=== PATIENT | female | born 1955 | race Caucasian/White ===

== ENCOUNTER 2016-09-28 14:21 | Emergency (ER) | payer MEDICAID ==
[~2016-09-28] VITALS: Ht 165.1 cm; Wt 88.0 kg
[~2016-09-28 14:21] MED LIST: ARIP2TAB PO; ATOR20TA9 PO; CALC200T24 PO; CLON0.5T PO; CLON1TAB PO; DIVA250T4 PO; DOCU-30 PO; FAMO20TA37 PO; HALO5TAB5 PO; LISI5TAB7 PO; OMEG1CAP6 PO
[2016-09-28] MEDS ORDERED: MAALOX/HYOSCYAMINE/LIDOCAINE 45 ML BOTTLE ONE (14:54)
[2016-09-28] MEDS ORDERED: MAALOX/HYOSCYAMINE/LIDOCAINE 45 ML BOTTLE PO ONE (15:00)
[2016-09-28 15:29] LABS: BLOOD UREA NITROGEN 31 mg/dL (7-18)
[2016-09-28 15:36] LABS: ASPARTATE AMINO TRANSFERASE 10 U/L (15-37)
[2016-09-28 15:43] LABS: IS PT STATUS REG ER OR PRE ER? YES
[2016-09-28 15:44] VITALS: BP 100/51
== END 2016-09-28 16:21 | disposition home or self-care (01) ==
LOC: ED 16:10
DX: R07.89 Other chest pain (principal); N18.9 Chronic kidney disease, unspecified; G20 Parkinson's disease; Z90.49 Acquired absence of other specified parts of digestive tract; Z90.710 Acquired absence of both cervix and uterus
CPT/HCPCS: 36415; 71010; 80053; 83690; 84484; 85025; 93005; 99285

== ENCOUNTER 2016-12-22 23:23 | Emergency (ER) | payer MEDICAID ==
[~2016-12-22] VITALS: Ht 165.1 cm; Wt 79.1 kg
[2016-12-23] MEDS ORDERED: LORazepam 1MG TABLET PO ONE
[2016-12-23] MEDS ORDERED: LORazepam 1MG TABLET ONE (00:04)
[2016-12-23] MEDS: HYDROcodone/APAP 5/325 TABLET PO ONE ×2 (00:30→03:38)
[2016-12-23] MEDS ORDERED: HYDROcodone/APAP 5/325 TABLET ONE ×2 (00:33→03:35)
[2016-12-23 00:34] LABS: ASPARTATE AMINO TRANSFERASE 7 U/L (15-37); BLOOD UREA NITROGEN 31 mg/dL (7-18)
[2016-12-23 00:43] LABS: IS PT STATUS REG ER OR PRE ER? YES
[2016-12-23 03:51] VITALS: BP 138/58
== END 2016-12-23 03:54 | disposition home or self-care (01) ==
LOC: ED 23:59
DX: R07.89 Other chest pain (principal); R33.0 Drug induced retention of urine; F17.210 Nicotine dependence, cigarettes, uncomplicated; G25.0 Essential tremor; Z90.49 Acquired absence of other specified parts of digestive tract; Z90.710 Acquired absence of both cervix and uterus
CPT/HCPCS: 36415; 71010; 80053; 84484; 85025; 85379; 93005

== ENCOUNTER 2017-01-11 11:20 | Emergency (ER) | payer MEDICAID ==
[~2017-01-11] VITALS: Ht 165.1 cm; Wt 84.0 kg
[2017-01-11] MEDS ORDERED: HALO10TA PO (11:45)
[2017-01-11] MEDS ORDERED: ARIP20TA8 PO (11:45)
[2017-01-11] MEDS ORDERED: DIVA500T4 PO (11:45)
[2017-01-11] MEDS ORDERED: SODIUM CHLORIDE 0.9% 1,000 ML IV ONE (11:54)
[2017-01-11] MEDS ORDERED: SODIUM CHLORIDE FLUSH 10ML SYR IVF ONE (12:00)
[2017-01-11] MEDS ORDERED: HYDROcodone/APAP 5/325 TABLET ONE (12:46)
[2017-01-11 12:54] LABS: HEMATOCRIT 39.4 % (34.6-47.8); HEMOGLOBIN 12.9 g/dL (11.7-16.4); WHITE BLOOD COUNT 6.3 x10^3/uL (3.4-10)
[2017-01-11] MEDS ORDERED: HYDROcodone/APAP 5/325 TABLET PO ONE (13:00)
[2017-01-11 13:05] LABS: ASPARTATE AMINO TRANSFERASE 8 U/L (15-37); BLOOD UREA NITROGEN 13 mg/dL (7-18)
[2017-01-11 14:31] VITALS: BP 125/65
== END 2017-01-11 14:34 | disposition home or self-care (01) ==
LOC: ED 11:56
DX: M54.42 Lumbago with sciatica, left side (principal); F31.9 Bipolar disorder, unspecified; G20 Parkinson's disease; F20.9 Schizophrenia, unspecified; Z88.5 Allergy status to narcotic agent; Z88.6 Allergy status to analgesic agent
CPT/HCPCS: 36415; 72110; 73502; 80053; 81003; 85025; 96360; 99285; J7030

== ENCOUNTER 2017-02-06 17:48 | Emergency (ER) | payer MEDICAID ==
[~2017-02-06] VITALS: Ht 165.1 cm; Wt 83.0 kg
[~2017-02-06 17:48] MED LIST changes: +ARIP20TA5 PO; -ARIP2TAB PO; +ARIP2TAB2 PO; +DIVA500T4 PO; +DOCU-131 PO; -DOCU-30 PO; +HALO10TA PO
[2017-02-06] MEDS ORDERED: SODIUM CHLORIDE FLUSH 10ML SYR IVF ONE (18:00)
[2017-02-06 18:31] LABS: HEMATOCRIT 37.8 % (34.6-47.8); HEMOGLOBIN 12.6 g/dL (11.7-16.4); WHITE BLOOD COUNT 6.5 x10^3/uL (3.4-10)
[2017-02-06 18:41] LABS: ASPARTATE AMINO TRANSFERASE 7 U/L (15-37); BLOOD UREA NITROGEN 22 mg/dL (7-18)
[2017-02-06] MEDS ORDERED: ARTANE (18:59)
[2017-02-06] MEDS ORDERED: HALO5TAB5 PO (18:59)
[2017-02-06] MEDS ORDERED: MAALOX/HYOSCYAMINE/LIDOCAINE 45 ML BTL PO ONE (19:00)
[2017-02-06 19:30] LABS: IS PT STATUS REG ER OR PRE ER? YES
[2017-02-06] MEDS ORDERED: MAALOX/HYOSCYAMINE/LIDOCAINE 45 ML BTL ONE (19:43)
[2017-02-06 22:16] VITALS: BP 114/76
== END 2017-02-06 22:18 | disposition home or self-care (01) ==
LOC: ED 21:06
DX: M79.604 Pain in right leg (principal); R10.84 Generalized abdominal pain
CPT/HCPCS: 36415; 71010; 80053; 81003; 84484; 85025; 93005; 99285

== ENCOUNTER 2017-02-07 18:34 | Emergency (ER) | payer MEDICAID ==
[~2017-02-07] VITALS: Ht 165.1 cm; Wt 84.0 kg
[~2017-02-07 18:34] MED LIST changes: +ARTANE
[2017-02-07 19:41] LABS: HEMATOCRIT 38.1 % (34.6-47.8); HEMOGLOBIN 12.6 g/dL (11.7-16.4); WHITE BLOOD COUNT 7.1 x10^3/uL (3.4-10)
[2017-02-07 19:55] LABS: ASPARTATE AMINO TRANSFERASE 6 U/L (15-37); BLOOD UREA NITROGEN 22 mg/dL (7-18)
[2017-02-07 21:43] VITALS: BP 113/70
== END 2017-02-07 21:45 | disposition home or self-care (01) ==
LOC: ED 20:23
DX: K92.1 Melena (principal); R19.7 Diarrhea, unspecified; G20 Parkinson's disease; Z90.49 Acquired absence of other specified parts of digestive tract; Z90.710 Acquired absence of both cervix and uterus
CPT/HCPCS: 36415; 74022; 80053; 83690; 85025; 99285

== ENCOUNTER 2017-03-10 23:01 | Emergency (ER) | payer MEDICAID ==
[~2017-03-10] VITALS: Ht 165.1 cm; Wt 83.1 kg
[2017-03-11] MEDS ORDERED: HYDROcodone/APAP 5/325 TABLET PO ONE (00:30)
[2017-03-11] MEDS ORDERED: HYDROcodone/APAP 5/325 TABLET ONE (00:32)
[2017-03-11 00:41] LABS: HEMATOCRIT 35.3 % (34.6-47.8); HEMOGLOBIN 11.9 g/dL (11.7-16.4); WHITE BLOOD COUNT 7.3 x10^3/uL (3.4-10)
[2017-03-11 00:50] LABS: BLOOD UREA NITROGEN 22 mg/dL (7-18)
[2017-03-11 01:24] VITALS: BP 103/56
== END 2017-03-11 01:27 | disposition home or self-care (01) ==
LOC: ED 23:59
DX: R51 Headache (principal); M54.5 Low back pain; M79.602 Pain in left arm; M79.601 Pain in right arm; M79.605 Pain in left leg; M79.604 Pain in right leg; Z90.49 Acquired absence of other specified parts of digestive tract; F20.9 Schizophrenia, unspecified; F17.200 Nicotine dependence, unspecified, uncomplicated; G20 Parkinson's disease; Z90.710 Acquired absence of both cervix and uterus
CPT/HCPCS: 36415; 80048; 82040; 85025; 99284

== ENCOUNTER 2017-03-22 16:15 | Emergency (ER) | payer MEDICAID ==
[~2017-03-22] VITALS: Ht 165.1 cm; Wt 84.0 kg
[2017-03-22 16:49] LABS: HEMATOCRIT 34.3 % (34.6-47.8); HEMOGLOBIN 11.3 g/dL (11.7-16.4); WHITE BLOOD COUNT 6.1 x10^3/uL (3.4-10)
[2017-03-22 16:59] LABS: ASPARTATE AMINO TRANSFERASE 8 U/L (15-37); BLOOD UREA NITROGEN 20 mg/dL (7-18)
[2017-03-22] MEDS ORDERED: MAALOX/HYOSCYAMINE/LIDOCAINE 45 ML BTL PO ONE (17:00)
[2017-03-22] MEDS ORDERED: FAMOTIDINE 20 MG TABLET PO ONE (17:00)
[2017-03-22] MEDS ORDERED: MAALOX/HYOSCYAMINE/LIDOCAINE 45 ML BTL ONE (17:16)
[2017-03-22] MEDS ORDERED: FAMOTIDINE 20 MG TABLET ONE (17:16)
[2017-03-22 18:32] VITALS: BP 107/54
== END 2017-03-22 18:34 | disposition home or self-care (01) ==
LOC: ED 17:22
DX: K21.0 Gastro-esophageal reflux disease with esophagitis (principal); G20 Parkinson's disease; F31.9 Bipolar disorder, unspecified; F20.9 Schizophrenia, unspecified; Z90.49 Acquired absence of other specified parts of digestive tract; Z79.82 Long term (current) use of aspirin; Z88.6 Allergy status to analgesic agent
CPT/HCPCS: 36415; 80053; 83690; 85025; 99284

== ENCOUNTER 2017-04-25 19:48 | Emergency (ER) | payer MEDICAID ==
[~2017-04-25] VITALS: Ht 165.1 cm; Wt 88.6 kg
[2017-04-25 20:26] LABS: HEMATOCRIT 34.9 % (34.6-47.8); HEMOGLOBIN 11.6 g/dL (11.7-16.4); WHITE BLOOD COUNT 5.9 x10^3/uL (3.4-10)
[2017-04-25] MEDS ORDERED: FAMOTIDINE 20 MG TABLET PO ONE (20:30)
[2017-04-25] MEDS ORDERED: MAALOX/HYOSCYAMINE/LIDOCAINE 45 ML BTL PO ONE (20:30)
[2017-04-25 20:38] LABS: BLOOD UREA NITROGEN 21 mg/dL (7-18)
[2017-04-25 20:50] LABS: IS PT STATUS REG ER OR PRE ER? YES
[2017-04-25] MEDS ORDERED: FAMOTIDINE 20 MG TABLET ONE (21:19)
[2017-04-25] MEDS ORDERED: MAALOX/HYOSCYAMINE/LIDOCAINE 45 ML BTL ONE (21:20)
[2017-04-25 21:30] VITALS: BP 124/62
== END 2017-04-25 21:51 | disposition home or self-care (01) ==
LOC: ED 21:45
DX: K29.00 Acute gastritis without bleeding (principal); K21.9 Gastro-esophageal reflux disease without esophagitis; G20 Parkinson's disease; Z90.49 Acquired absence of other specified parts of digestive tract
CPT/HCPCS: 36415; 71010; 80048; 82040; 84484; 85025; 93005; 99285

== ENCOUNTER 2017-06-14 20:29 | Emergency (ER) | payer MEDICAID ==
[2017-06-14] MEDS ORDERED: MAALOX/HYOSCYAMINE/LIDOCAINE 45 ML BTL ONE (20:58)
[2017-06-14] MEDS ORDERED: MAALOX/HYOSCYAMINE/LIDOCAINE 45 ML BTL PO ONE (21:00)
[2017-06-14 21:08] LABS: BASOPHILS # (AUTO) 0.05 x10^3/uL (0-0.1); BASOPHILS % (AUTO) 1 % (0-1); EOSINOPHILS # (AUTO) 0.12 x10^3/uL (0-0.4); EOSINOPHILS % (AUTO) 2 % (1-7); LYMPHOCYTES % (AUTO) 35 % (22-44); MD NO; MEAN CORPUSCULAR HEMOGLOBIN 28.9 pg (27.0-34.8); MEAN CORPUSCULAR HGB CONC 33.1 g/dL (32.4-35.8); MEAN CORPUSCULAR VOLUME 87.2 fL (80-100); MEAN PLATELET VOLUME 10.9 fL (7.4-10.4); MONOCYTES # (AUTO) 0.55 x10^3/uL (0.2-0.8); MONOCYTES % (AUTO) 9 % (2-9); NEUTROPHILS # (AUTO) 3.42 x10^3/uL (1.8-6.8); NEUTROPHILS % (AUTO) 54 % (42-75); PLATELET COUNT 165 x10^3/uL (130-400); RED BLOOD COUNT 3.93 x10^6/uL (3.82-5.3); RED CELL DISTRIBUTION WIDTH 14.9 % (9.6-15.2)
[2017-06-14 21:09] LABS: MICROSCOPIC NOT IND
[2017-06-14 21:22] LABS: TROPONIN I < 0.015 ng/mL (0.000-0.045)
[2017-06-14 21:27] LABS: ALBUMIN 2.9 g/dL (3.4-5.0); ANION GAP 6 mmol/L (5-15); CALCIUM 8.5 mg/dL (8.5-10.1); CHLORIDE 109 mmol/L (98-107)
[2017-06-14 21:31] LABS: ALANINE AMINOTRANSFERASE 26 U/L (12-78); ALKALINE PHOSPHATASE 85 U/L (45-117); BILIRUBIN,TOTAL 0.3 mg/dL (0.2-1.0); CREATININE 2.12 mg/dL (0.55-1.02); TOTAL PROTEIN 6.4 g/dL (6.4-8.2)
[2017-06-14 21:31] LABS: CULTURE INDICATED? NO
[2017-06-14 22:11] VITALS: BP 124/78
== END 2017-06-14 22:13 | disposition home or self-care (01) ==
LOC: ED 22:00
DX: K29.00 Acute gastritis without bleeding (principal); G20 Parkinson's disease; K21.9 Gastro-esophageal reflux disease without esophagitis; Z90.49 Acquired absence of other specified parts of digestive tract
CPT/HCPCS: 36415; 80053; 81003; 83690; 84484; 85025; 93005; 99285

== ENCOUNTER 2017-08-09 11:39 | Emergency (ER) | payer MEDICAID ==
[~2017-08-09] VITALS: Ht 165.1 cm; Wt 81.8 kg
[2017-08-09] MEDS ORDERED: SODIUM CHLORIDE 0.9% 1,000ML IVBOLUS ONE (12:00)
[2017-08-09 12:35] LABS: BASOPHILS # (AUTO) 0.04 x10^3/uL (0-0.1); BASOPHILS % (AUTO) 1 % (0-1); EOSINOPHILS # (AUTO) 0.11 x10^3/uL (0-0.4); EOSINOPHILS % (AUTO) 2 % (1-7); LYMPHOCYTES # (AUTO) 1.84 x10^3/uL (1-3.4); LYMPHOCYTES % (AUTO) 32 % (22-44); MD NO; MEAN CORPUSCULAR HEMOGLOBIN 29.1 pg (27.0-34.8); MEAN CORPUSCULAR HGB CONC 33.4 g/dL (32.4-35.8); MEAN CORPUSCULAR VOLUME 87.3 fL (80-100); MEAN PLATELET VOLUME 10.5 fL (7.4-10.4); MONOCYTES % (AUTO) 11 % (2-9); NEUTROPHILS % (AUTO) 55 % (42-75); PLATELET COUNT 194 x10^3/uL (130-400); RED BLOOD COUNT 4.35 x10^6/uL (3.82-5.3); RED CELL DISTRIBUTION WIDTH 14.2 % (9.6-15.2)
[2017-08-09 12:41] LABS: ALBUMIN 3.4 g/dL (3.4-5.0); ANION GAP 9 mmol/L (5-15); CALCIUM 8.8 mg/dL (8.5-10.1); CHLORIDE 108 mmol/L (98-107)
[2017-08-09 12:45] LABS: ALANINE AMINOTRANSFERASE 18 U/L (12-78); ALKALINE PHOSPHATASE 100 U/L (45-117); BILIRUBIN,TOTAL 0.4 mg/dL (0.2-1.0); CREATININE 1.99 mg/dL (0.55-1.02); TOTAL PROTEIN 7.2 g/dL (6.4-8.2)
[2017-08-09 14:22] LABS: THYROID STIMULATING HORMONE 2.33 mIU/L (0.358-3.740)
[2017-08-09 15:33] LABS: CULTURE INDICATED? NO; MICROSCOPIC NOT IND
[2017-08-09 15:57] VITALS: BP 106/84
== END 2017-08-09 16:16 | disposition home or self-care (01) ==
LOC: ED 14:40
DX: R53.1 Weakness (principal); F20.9 Schizophrenia, unspecified; F31.9 Bipolar disorder, unspecified; I48.91 Unspecified atrial fibrillation
CPT/HCPCS: 36415; 70450; 80053; 81003; 83735; 84443; 85025; 93005; 96360; 96361; 99285; J7030

== ENCOUNTER 2018-02-15 20:27 | Observation (INO) | payer MEDICAID ==
[~2018-02-15] VITALS: Ht 165.1 cm; Wt 89.3 kg
[2018-02-15 20:58] LABS: BASOPHILS # (AUTO) 0.04 x10^3/uL (0-0.1); BASOPHILS % (AUTO) 1 % (0-1); EOSINOPHILS # (AUTO) 0.15 x10^3/uL (0-0.4); EOSINOPHILS % (AUTO) 2 % (1-7); LYMPHOCYTES # (AUTO) 2.66 x10^3/uL (1-3.4); LYMPHOCYTES % (AUTO) 37 % (22-44); MD NO; MEAN CORPUSCULAR HEMOGLOBIN 29.7 pg (27.0-34.8); MEAN CORPUSCULAR HGB CONC 33.5 g/dL (32.4-35.8); MEAN CORPUSCULAR VOLUME 88.6 fL (80-100); MEAN PLATELET VOLUME 9.9 fL (7.4-10.4); MONOCYTES # (AUTO) 0.69 x10^3/uL (0.2-0.8); MONOCYTES % (AUTO) 10 % (2-9); NEUTROPHILS # (AUTO) 3.59 x10^3/uL (1.8-6.8); NEUTROPHILS % (AUTO) 50 % (42-75); PLATELET COUNT 181 x10^3/uL (130-400); RED BLOOD COUNT 3.66 x10^6/uL (3.82-5.3); RED CELL DISTRIBUTION WIDTH 15.1 % (9.6-15.2)
[2018-02-15] MEDS ORDERED: SODIUM CHLORIDE FLUSH 10ML SYR IVF ONE (21:00)
[2018-02-15 21:03] LABS: ALBUMIN 2.9 g/dL (3.4-5.0); ANION GAP 13 mmol/L (5-15); CALCIUM 8.1 mg/dL (8.5-10.1); CHLORIDE 104 mmol/L (98-107); CREATININE 2.21 mg/dL (0.55-1.02)
[2018-02-15 21:07] LABS: TROPONIN I < 0.015 ng/mL (0.000-0.045)
[2018-02-15] MEDS ORDERED: ACETAMINOPHEN 500 MG TABLET ONE (21:31)
[2018-02-15] MEDS ORDERED: SODIUM CHLORIDE 0.9% 1,000 ML IV SCH (21:49)
[2018-02-15] MEDS ORDERED: ACETAMINOPHEN 325 MG TABLET PO PRN (22:00)
[2018-02-15] MEDS ORDERED: POLYETHYLENE GLYCOL 17 GM PACKET PO PRN (22:00)
[2018-02-15] MEDS ORDERED: hydrALAzine 20 MG/ML, 1ML IVPush PRN (22:00)
[2018-02-15] MEDS ORDERED: ACETAMINOPHEN 500 MG TABLET PO ONE (22:00)
[2018-02-15 22:54] VITALS: BP 109/70
[2018-02-15 23:17] VITALS: BP 109/73
[2018-02-16 00:01] VITALS: BP 98/64
[2018-02-16] MEDS: HEPARIN 5,000 UNITS/ML, 1ML SQ SCH ×3 (00:13→14:00)
[2018-02-16] MEDS ORDERED: NITROGLYCERIN 0.4 MG/SPRAY SL PRN (00:30)
[2018-02-16] MEDS ORDERED: NITROGLYCERIN 0.4 MG BOTTLE (25 TABS) SL PRN (00:30)
[2018-02-16 04:52] LABS: ANION GAP 7 mmol/L (5-15); CHLORIDE 111 mmol/L (98-107)
[2018-02-16 04:57] LABS: TROPONIN I < 0.015 ng/mL (0.000-0.045)
[2018-02-16] MEDS ORDERED: DIVALPROEX 500 MG TAB.ER.24H PO SCH (08:00)
[2018-02-16 08:36] VITALS: BP 126/79
[2018-02-16] MEDS ORDERED: HALOPERIDOL 5 MG TABLET PO SCH (09:00)
[2018-02-16] MEDS ORDERED: ARIPIPRAZOLE 10 MG TABLET PO SCH (09:00)
[2018-02-16] MEDS ORDERED: REGADENOSON 0.4 MG/5 ML SYRINGE ONE (09:09)
== END 2018-02-16 16:13 | disposition home or self-care (01) ==
LOC: SUATTDRO 21:40 → ED 22:07 → EDIP 22:18 → 5SO 22:31
PROVIDERS: ADMIT Hospitalist; ATTEND Hospitalist
DX: R07.89 Other chest pain (principal); F31.9 Bipolar disorder, unspecified; D64.9 Anemia, unspecified; E43 Unspecified severe protein-calorie malnutrition; E78.5 Hyperlipidemia, unspecified; F17.210 Nicotine dependence, cigarettes, uncomplicated; F20.9 Schizophrenia, unspecified; K21.9 Gastro-esophageal reflux disease without esophagitis; N28.9 Disorder of kidney and ureter, unspecified; Z79.82 Long term (current) use of aspirin
CPT/HCPCS: 36415; 71045; 78452; 80048; 82040; 83735; 84100; 84484; 85025; 93005; 93017; 96372; 99285; A9502; C9898; G0378; J1644; J2785; J7030

== ENCOUNTER 2018-05-20 12:17 | Observation (INO) | payer MEDICAID ==
[~2018-05-20] VITALS: Ht 165.1 cm; Wt 83.7 kg
[~2018-05-20 12:17] MED LIST changes: +ATOR20TA37 PO; -ATOR20TA9 PO
[2018-05-20 13:18] LABS: BASOPHILS # (AUTO) 0.04 x10^3/uL (0-0.1); BASOPHILS % (AUTO) 1 % (0-1); EOSINOPHILS # (AUTO) 0.06 x10^3/uL (0-0.4); EOSINOPHILS % (AUTO) 2 % (1-7); LYMPHOCYTES # (AUTO) 1.49 x10^3/uL (1-3.4); LYMPHOCYTES % (AUTO) 34 % (22-44); MD NO; MEAN CORPUSCULAR HEMOGLOBIN 29.4 pg (27.0-34.8); MEAN CORPUSCULAR HGB CONC 33.9 g/dL (32.4-35.8); MEAN CORPUSCULAR VOLUME 86.7 fL (80-100); MEAN PLATELET VOLUME 10.2 fL (7.4-10.4); MONOCYTES # (AUTO) 0.35 x10^3/uL (0.2-0.8); MONOCYTES % (AUTO) 8 % (2-9); NEUTROPHILS # (AUTO) 2.47 x10^3/uL (1.8-6.8); NEUTROPHILS % (AUTO) 56 % (42-75); PLATELET COUNT 153 x10^3/uL (130-400); RED BLOOD COUNT 4.01 x10^6/uL (3.82-5.3); RED CELL DISTRIBUTION WIDTH 14.4 % (9.6-15.2)
[2018-05-20] MEDS ORDERED: MAALOX/HYOSCYAMINE/LIDOCAINE 45 ML BTL ONE (13:25)
[2018-05-20] MEDS ORDERED: ASPIRIN 81 MG TABLET CHEW ONE (13:25)
[2018-05-20] MEDS ORDERED: ASPIRIN 81 MG TABLET CHEW PO ONE ×2 (13:30)
[2018-05-20] MEDS ORDERED: MAALOX/HYOSCYAMINE/LIDOCAINE 45 ML BTL PO ONE (13:30)
[2018-05-20 13:33] LABS: ALANINE AMINOTRANSFERASE 20 U/L (12-78); ALBUMIN 3.2 g/dL (3.4-5.0); ANION GAP 9 mmol/L (5-15); CALCIUM 8.8 mg/dL (8.5-10.1); CHLORIDE 109 mmol/L (98-107); CREATININE 2.48 mg/dL (0.55-1.02)
[2018-05-20 13:38] LABS: ALKALINE PHOSPHATASE 105 U/L (45-117); BILIRUBIN,TOTAL 0.2 mg/dL (0.2-1.0); TOTAL PROTEIN 6.6 g/dL (6.4-8.2); TROPONIN I < 0.015 ng/mL (0.000-0.045)
[2018-05-20] MEDS ORDERED: NITROGLYCERIN OINT 2%, 1GM TP ONE (14:00)
[2018-05-20] MEDS ORDERED: ACETAMINOPHEN 325 MG TABLET PO PRN (14:30)
[2018-05-20] MEDS ORDERED: TEMPLATE NON-FORMULARY MED. (Divalproex Sodium** (Depakote Er**) 1,000 MG) PO SCH (14:30)
[2018-05-20] MEDS ORDERED: BISACODYL 10 MG SUPP PR PRN (14:30)
[2018-05-20] MEDS ORDERED: HALOPERIDOL 10 MG PO SCH (14:30)
[2018-05-20] MEDS ORDERED: DOCUSATE 100 MG CAPSULE PO PRN (14:30)
[2018-05-20] MEDS ORDERED: ONDANSETRON 2MG/ML, 2ML IVPush PRN (14:30)
[2018-05-20] MEDS ORDERED: hydrALAzine 20 MG/ML, 1ML IVPush PRN (14:30)
[2018-05-20] MEDS ORDERED: POLYETHYLENE GLYCOL 17 GM PACKET PO PRN (14:30)
[2018-05-20] MEDS ORDERED: NITROGLYCERIN 0.4 MG BOTTLE (25 TABS) SL PRN (14:30)
[2018-05-20 15:00] VITALS: BP 118/77
[2018-05-20] MEDS: HEPARIN 5,000 UNITS/ML, 1ML SQ SCH ×2 (16:05→23:55)
[2018-05-20] MEDS ORDERED: TRIH2TAB3 PO (16:29)
[2018-05-20] MEDS ORDERED: CLON1TAB PO (16:29)
[2018-05-20] MEDS ORDERED: HALO10TA PO (16:29)
[2018-05-20] MEDS ORDERED: CHOL200085 PO (16:33)
[2018-05-20] MEDS ORDERED: FAMO20TA7 PO (16:33)
[2018-05-20 17:16] LABS: TROPONIN I < 0.015 ng/mL (0.000-0.045)
[2018-05-20] MEDS: HALOPERIDOL 5 MG TABLET PO SCH (20:09)
[2018-05-20 20:19] VITALS: BP 100/57
[2018-05-20 23:33] LABS: TROPONIN I < 0.015 ng/mL (0.000-0.045)
[2018-05-21 00:14] VITALS: BP 95/62
[2018-05-21] MEDS ORDERED: ASPIRIN 325 MG TABLET EC PO SCH (06:00)
[2018-05-21 08:05] VITALS: BP 95/64
[2018-05-21] MEDS: HEPARIN 5,000 UNITS/ML, 1ML SQ SCH (08:11)
[2018-05-21] MEDS: HALOPERIDOL 5 MG TABLET PO SCH (08:11)
[2018-05-21 08:26] LABS: BASOPHILS # (AUTO) 0.04 x10^3/uL (0-0.1); BASOPHILS % (AUTO) 1 % (0-1); EOSINOPHILS # (AUTO) 0.09 x10^3/uL (0-0.4); EOSINOPHILS % (AUTO) 2 % (1-7); LYMPHOCYTES # (AUTO) 2.15 x10^3/uL (1-3.4); LYMPHOCYTES % (AUTO) 45 % (22-44); MD NO; MEAN CORPUSCULAR HEMOGLOBIN 28.7 pg (27.0-34.8); MEAN CORPUSCULAR VOLUME 87.1 fL (80-100); MONOCYTES # (AUTO) 0.36 x10^3/uL (0.2-0.8); MONOCYTES % (AUTO) 7 % (2-9); NEUTROPHILS # (AUTO) 2.18 x10^3/uL (1.8-6.8); NEUTROPHILS % (AUTO) 45 % (42-75); PLATELET COUNT 153 x10^3/uL (130-400); RED BLOOD COUNT 4.03 x10^6/uL (3.82-5.3); RED CELL DISTRIBUTION WIDTH 14.2 % (9.6-15.2)
[2018-05-21 08:35] LABS: ANION GAP 7 mmol/L (5-15); CALCIUM 8.4 mg/dL (8.5-10.1); CHLORIDE 111 mmol/L (98-107); CREATININE 2.52 mg/dL (0.55-1.02)
[2018-05-21] MEDS ORDERED: ARIPIPRAZOLE 10 MG TABLET PO SCH (09:00)
[2018-05-21] MEDS ORDERED: DIVALPROEX 500 MG TAB.ER.24H PO SCH (09:00)
== END 2018-05-21 13:02 | disposition home or self-care (01) ==
LOC: ED 14:01 → EDIP 14:02 → INTOOBSV 14:02 → 5SO 14:51 → DCLOUNGE 05-21 12:40
PROVIDERS: ADMIT Internal Medicine; ATTEND Internal Medicine
DX: R07.89 Other chest pain (principal); E44.1 Mild protein-calorie malnutrition; F20.9 Schizophrenia, unspecified; F31.9 Bipolar disorder, unspecified; G20 Parkinson's disease; I12.9 Hypertensive chronic kidney disease with stage 1 through stage 4 chronic kidney disease, or unspecified chronic kidney disease; N18.9 Chronic kidney disease, unspecified; K21.9 Gastro-esophageal reflux disease without esophagitis; F17.200 Nicotine dependence, unspecified, uncomplicated
CPT/HCPCS: 36415; 71045; 80048; 80053; 83880; 84484; 85025; 93005; 93306; 96372; 99284; G0378; J1644

== ENCOUNTER 2018-06-17 19:20 | Emergency (ER) | payer MEDICAID ==
[~2018-06-17 19:20] MED LIST changes: +CHOL200085 PO; +FAMO20TA7 PO; +TRIH2TAB3 PO
--- NOTE | 2018-06-17 19:51 | NUR ---
TASK RN: PT. AMBULATED TO ROOM FROM LOBBY WITH STEADY GAIT. URINE CUP PROVIDED AND PT. AMBULATORY TO BR TO PROVIDE URINE SAMPLE.
[2018-06-17 19:52] LABS: BASOPHILS # (AUTO) 0.04 x10^3/uL (0-0.1); BASOPHILS % (AUTO) 1 % (0-1); EOSINOPHILS # (AUTO) 0.13 x10^3/uL (0-0.4); EOSINOPHILS % (AUTO) 2 % (1-7); LYMPHOCYTES # (AUTO) 2.09 x10^3/uL (1-3.4); LYMPHOCYTES % (AUTO) 40 % (22-44); MD NO; MEAN CORPUSCULAR HEMOGLOBIN 30.2 pg (27.0-34.8); MEAN CORPUSCULAR HGB CONC 34.8 g/dL (32.4-35.8); MEAN CORPUSCULAR VOLUME 86.7 fL (80-100); MEAN PLATELET VOLUME 9.9 fL (7.4-10.4); MONOCYTES # (AUTO) 0.39 x10^3/uL (0.2-0.8); MONOCYTES % (AUTO) 8 % (2-9); NEUTROPHILS # (AUTO) 2.54 x10^3/uL (1.8-6.8); NEUTROPHILS % (AUTO) 49 % (42-75); PLATELET COUNT 184 x10^3/uL (130-400); RED BLOOD COUNT 4.01 x10^6/uL (3.82-5.3); RED CELL DISTRIBUTION WIDTH 14.7 % (9.6-15.2)
[2018-06-17 20:02] LABS: ALBUMIN 3.3 g/dL (3.4-5.0); ANION GAP 8 mmol/L (5-15); CALCIUM 8.4 mg/dL (8.5-10.1); CHLORIDE 108 mmol/L (98-107); CREATININE 2.27 mg/dL (0.55-1.02)
[2018-06-17 20:10] LABS: ALANINE AMINOTRANSFERASE 19 U/L (12-78); ALKALINE PHOSPHATASE 119 U/L (45-117); BILIRUBIN,TOTAL 0.2 mg/dL (0.2-1.0); TOTAL PROTEIN 6.8 g/dL (6.4-8.2)
[2018-06-17 20:11] LABS: MICROSCOPIC NOT IND
[2018-06-17 20:21] LABS: CULTURE INDICATED? NO
--- NOTE | 2018-06-17 20:26 | NUR ---
PT'S CHART UP FOR RECHECK
--- NOTE | 2018-06-17 21:19 | NUR ---
PT IS RESTING ON GURNEY. RR EVEN AND UNLABORED. PT DENIES NEEDS OR PAIN ATT. NAD NOTED
--- NOTE | 2018-06-17 21:29 | NUR ---
DR LEE AT BEDSIDE UPDATING PT ON POC
--- NOTE | 2018-06-17 21:50 | NUR ---
Break RN: re-evaluation done. patient discharged with instruction. verbalized understanding.
[2018-06-17 21:51] VITALS: BP 116/76
== END 2018-06-17 21:53 | disposition home or self-care (01) ==
LOC: ED 21:40
DX: R10.84 Generalized abdominal pain (principal); N18.9 Chronic kidney disease, unspecified; G20 Parkinson's disease
CPT/HCPCS: 36415; 80053; 81003; 83690; 85025; 99283

== ENCOUNTER 2018-06-22 13:25 | Emergency (ER) | payer MEDICAID ==
[~2018-06-22] VITALS: Ht 165.1 cm; Wt 83.0 kg
[~2018-06-22 13:25] MED LIST changes: +CHOL20002 PO; -CHOL200085 PO
--- NOTE | 2018-06-22 13:39 | NUR ---
Pt BIB EMS from home where lives by herself for intermittent pain to lower ABD for a long time. Pt her yesterday for similar. Pt states her walk feels unsteady, her abd, arms, legs, and back all hurt. "I should have come in last night so they could have found the heart trouble". Pt denies CP at this time. ABD tender to palp in L quads and general lower area. Pt appears NAD.
[2018-06-22 14:24] LABS: BASOPHILS # (AUTO) 0.03 x10^3/uL (0-0.1); BASOPHILS % (AUTO) 1 % (0-1); EOSINOPHILS % (AUTO) 2 % (1-7); LYMPHOCYTES # (AUTO) 1.66 x10^3/uL (1-3.4); LYMPHOCYTES % (AUTO) 39 % (22-44); MD NO; MEAN CORPUSCULAR HEMOGLOBIN 27.8 pg (27.0-34.8); MEAN CORPUSCULAR VOLUME 86.8 fL (80-100); MONOCYTES # (AUTO) 0.42 x10^3/uL (0.2-0.8); MONOCYTES % (AUTO) 10 % (2-9); NEUTROPHILS # (AUTO) 2.07 x10^3/uL (1.8-6.8); NEUTROPHILS % (AUTO) 48 % (42-75); PLATELET COUNT 171 x10^3/uL (130-400); RED BLOOD COUNT 4.23 x10^6/uL (3.82-5.3); RED CELL DISTRIBUTION WIDTH 14.4 % (9.6-15.2)
[2018-06-22 14:34] LABS: ALANINE AMINOTRANSFERASE 20 U/L (12-78); ALBUMIN 3.1 g/dL (3.4-5.0); ANION GAP 6 mmol/L (5-15); CALCIUM 8.5 mg/dL (8.5-10.1); CHLORIDE 111 mmol/L (98-107); CREATININE 2.11 mg/dL (0.55-1.02)
[2018-06-22 14:39] LABS: MICROSCOPIC NOT IND
[2018-06-22 14:39] LABS: ALKALINE PHOSPHATASE 114 U/L (45-117); BILIRUBIN,TOTAL 0.2 mg/dL (0.2-1.0); TOTAL PROTEIN 6.6 g/dL (6.4-8.2); TROPONIN I < 0.015 ng/mL (0.000-0.045)
[2018-06-22 14:40] LABS: CULTURE INDICATED? NO
[2018-06-22 16:04] VITALS: BP 111/55
== END 2018-06-22 16:16 | disposition home or self-care (01) ==
LOC: ED 13:52
DX: R10.32 Left lower quadrant pain (principal); R10.31 Right lower quadrant pain; I12.9 Hypertensive chronic kidney disease with stage 1 through stage 4 chronic kidney disease, or unspecified chronic kidney disease; N18.9 Chronic kidney disease, unspecified; F20.1 Disorganized schizophrenia; G20 Parkinson's disease; K21.9 Gastro-esophageal reflux disease without esophagitis; E78.5 Hyperlipidemia, unspecified
CPT/HCPCS: 36415; 74176; 80053; 81003; 83690; 84484; 85025; 93005; 99284

== ENCOUNTER 2018-08-26 17:30 | Emergency (ER) | payer MEDICAID ==
[~2018-08-26] VITALS: Ht 165.1 cm; Wt 86.0 kg
--- NOTE | 2018-08-26 17:49 | NUR ---
NO ANSWER IN LOBBY @[id number]
[2018-08-26 17:58] VITALS: BP 129/84
[2018-08-26 18:34] LABS: BASOPHILS # (AUTO) 0.03 x10^3/uL (0-0.1); BASOPHILS % (AUTO) 1 % (0-1); EOSINOPHILS % (AUTO) 2 % (1-7); LYMPHOCYTES # (AUTO) 1.76 x10^3/uL (1-3.4); LYMPHOCYTES % (AUTO) 31 % (22-44); MD NO; MEAN CORPUSCULAR HGB CONC 33.5 g/dL (32.4-35.8); MEAN CORPUSCULAR VOLUME 86.7 fL (80-100); MEAN PLATELET VOLUME 10.1 fL (7.4-10.4); MONOCYTES # (AUTO) 0.44 x10^3/uL (0.2-0.8); MONOCYTES % (AUTO) 8 % (2-9); NEUTROPHILS # (AUTO) 3.32 x10^3/uL (1.8-6.8); NEUTROPHILS % (AUTO) 59 % (42-75); PLATELET COUNT 204 x10^3/uL (130-400); RED BLOOD COUNT 4.01 x10^6/uL (3.82-5.3); RED CELL DISTRIBUTION WIDTH 14.4 % (9.6-15.2)
[2018-08-26 18:42] LABS: ALBUMIN 3.5 g/dL (3.4-5.0); ANION GAP 7 mmol/L (5-15); CALCIUM 8.6 mg/dL (8.5-10.1); CHLORIDE 110 mmol/L (98-107)
[2018-08-26] MEDS ORDERED: METHYLNALTREXONE 12 MG/0.6 ML SQ ONE (20:30)
[2018-08-26] MEDS ORDERED: MAGNESIUM CITRATE 300ML ORAL SOL PO ONE (20:30)
[2018-08-26] MEDS ORDERED: MAGNESIUM CITRATE 300ML ORAL SOL ONE (20:43)
[2018-08-26] MEDS ORDERED: METHYLNALTREXONE 12 MG/0.6 ML SYR SQ ONE (21:00)
== END 2018-08-26 21:20 | disposition home or self-care (01) ==
LOC: ED 21:05
DX: K59.00 Constipation, unspecified (principal); I10 Essential (primary) hypertension
CPT/HCPCS: 36415; 74021; 80048; 82040; 82962; 85025; 96372; 99284

== ENCOUNTER 2018-10-13 20:31 | Emergency (ER) | payer MEDICAID ==
[~2018-10-13] VITALS: Ht 165.1 cm; Wt 84.3 kg
--- NOTE | 2018-10-13 21:21 | NUR ---
PT. TO ED WITH C/O DIFFUSE ABD PAIN AND "ENTIRE BODY PAIN" X MONTHS. PT. REPORTS NAUSEA. DENIES VOMITING OR DIARRHEA. POOR HISTORIAN. WHEN ASKED ABOUT THE VAGINAL PAIN REPORTED IN TRIAGE PT. STATES "OH YEAH, I HAVE STABBING PAINS BUT I GET THAT ALL THE TIME." PT. AMBULATED TO BR WITH STEADY GAIT AND PROVIDED CLEAN CATCH UA. URINE SENT TO LAB. CONTINUOUS PULSE OX AND B/P MONITORS PLACED. CALL LIGHT IN REACH.
[2018-10-13 21:26] LABS: MICROSCOPIC NOT IND
[2018-10-13 21:30] LABS: CULTURE INDICATED? NO
--- NOTE | 2018-10-13 21:44 | NUR ---
SIENA RUBALCAVA AT BS FOR PELVIC EXAM.
[2018-10-13 21:54] LABS: CLUE CELLS NONE SEEN (NONE SEEN); WET PREP WBCS NONE SEEN (FEW)
[2018-10-13 22:00] VITALS: BP 120/66
== END 2018-10-13 22:28 | disposition home or self-care (01) ==
LOC: ED 21:57
DX: R10.2 Pelvic and perineal pain (principal); K21.9 Gastro-esophageal reflux disease without esophagitis; E78.5 Hyperlipidemia, unspecified; I10 Essential (primary) hypertension; F20.9 Schizophrenia, unspecified; F31.9 Bipolar disorder, unspecified; Z90.49 Acquired absence of other specified parts of digestive tract; Z90.710 Acquired absence of both cervix and uterus
CPT/HCPCS: 81003; 87210; 87808; 99283

== ENCOUNTER 2018-11-25 20:10 | Emergency (ER) | payer MEDICAID ==
[~2018-11-25] VITALS: Ht 165.1 cm; Wt 84.4 kg
[2018-11-25 20:11] VITALS: BP 116/68
[2018-11-25] MEDS ORDERED: IBUPROFEN 800 MG TABLET PO ONE (21:00)
== END 2018-11-25 21:00 | disposition left against medical advice (07) ==
LOC: ED 20:45
DX: Z00.00 Encounter for general adult medical examination without abnormal findings (principal)
CPT/HCPCS: 99281; 99282

== ENCOUNTER 2018-12-14 16:03 | Emergency (ER) | payer MEDICAID ==
[~2018-12-14] VITALS: Ht 165.1 cm; Wt 90.0 kg
--- NOTE | 2018-12-14 16:51 | NUR ---
ELEMENTARY SCHOOL SCIENCE TEACHER: PT AMBULATORY FROM LOBBY TO ED ROOM 38 IN NAD AT THIS TIME
[2018-12-14 16:53] LABS: BASOPHILS # (AUTO) 0.08 x10^3/uL (0-0.1); BASOPHILS % (AUTO) 1 % (0-1); EOSINOPHILS # (AUTO) 0.22 x10^3/uL (0-0.4); EOSINOPHILS % (AUTO) 4 % (1-7); LYMPHOCYTES # (AUTO) 1.96 x10^3/uL (1-3.4); LYMPHOCYTES % (AUTO) 31 % (22-44); MD NO; MEAN CORPUSCULAR VOLUME 87.8 fL (80-100); MEAN PLATELET VOLUME 10.6 fL (7.4-10.4); MONOCYTES # (AUTO) 0.43 x10^3/uL (0.2-0.8); MONOCYTES % (AUTO) 7 % (2-9); NEUTROPHILS % (AUTO) 57 % (42-75); PLATELET COUNT 175 x10^3/uL (130-400); RED BLOOD COUNT 3.94 x10^6/uL (3.82-5.3)
[2018-12-14 17:02] LABS: ALANINE AMINOTRANSFERASE 19 U/L (12-78); ALBUMIN 3.1 g/dL (3.4-5.0); ANION GAP 6 mmol/L (5-15); CALCIUM 8.4 mg/dL (8.5-10.1); CHLORIDE 108 mmol/L (98-107); CREATININE 1.97 mg/dL (0.55-1.02)
--- NOTE | 2018-12-14 17:06 | NUR ---
THIS IS A Y/O FEMALE WHO IS HAVING CHEST PAIN SINCE LAST NIGHT AROUND 2300. PT REPORTS SUDDEN ONSET AND REMANINS IN CHEST AREA. NO REPORTED RADIAITON. PT REPORTS PAIN A SHARP PRESSURE. PT REPORTS SOB WITH EXERTION. PT REPORTS NO RELIEF IN PAIN. PT CONNECTED TO ALL MONITORS AND CALL LIGHT IN REACH. AWAITING FURTHER ORDERS.
[2018-12-14 17:07] LABS: ALKALINE PHOSPHATASE 115 U/L (45-117); BILIRUBIN,TOTAL 0.3 mg/dL (0.2-1.0); TOTAL PROTEIN 6.7 g/dL (6.4-8.2); TROPONIN I < 0.015 ng/mL (0.000-0.045)
[2018-12-14 17:22] VITALS: BP 180/90
[2018-12-14] MEDS ORDERED: FAMOTIDINE 20 MG TABLET PO ONE (17:30)
[2018-12-14] MEDS ORDERED: FAMOTIDINE 20 MG TABLET ONE (17:37)
[2018-12-14 18:47] LABS: TROPONIN I < 0.015 ng/mL (0.000-0.045)
--- NOTE | 2018-12-14 18:52 | NUR ---
PT ASSISTED TO BATHROOM, SECOND BLANKET PROVIDED AT THIS TIME.
--- NOTE | 2018-12-14 19:14 | NUR ---
Patient/Caregiver given discharge instructions and they have confirmed that they understand the instructions. Patient ambulatory with steady gait.
--- NOTE | 2018-12-14 19:24 | NUR ---
CARE ASSUMED FOR DC. PT DC'D HOME WITH UNDERSTANDING OF INSTRUCTIONS. TAXI VOUCHER PROVIDED FOR SAFE DC. PT ESCORTED TO DC DESK, GAIT STEADY.
== END 2018-12-14 19:26 | disposition home or self-care (01) ==
LOC: ED 17:04
DX: R07.89 Other chest pain (principal); I10 Essential (primary) hypertension; E78.5 Hyperlipidemia, unspecified; K21.9 Gastro-esophageal reflux disease without esophagitis; F31.9 Bipolar disorder, unspecified; F20.9 Schizophrenia, unspecified; F17.210 Nicotine dependence, cigarettes, uncomplicated; Z90.89 Acquired absence of other organs; Z90.710 Acquired absence of both cervix and uterus
CPT/HCPCS: 36415; 71045; 80053; 83690; 84484; 85025; 93005; 99284

== ENCOUNTER 2018-12-23 19:12 | Emergency (ER) | payer MEDICAID ==
[~2018-12-23] VITALS: Ht 165.1 cm; Wt 83.3 kg
[2018-12-23 19:21] VITALS: BP 116/66
--- NOTE | 2018-12-23 19:43 | NUR ---
Patient to miroslava; hooked up to monitor; VSS patient complains of "something hanging out of her hole" starting 3 days prior; wanted to wait to sunday but changed her mind. No pain or difficulty breathing at this time.
== END 2018-12-23 20:48 | disposition home or self-care (01) ==
LOC: ED 20:15
DX: N81.11 Cystocele, midline (principal); I10 Essential (primary) hypertension; K21.9 Gastro-esophageal reflux disease without esophagitis; F31.9 Bipolar disorder, unspecified; F20.9 Schizophrenia, unspecified; E78.5 Hyperlipidemia, unspecified; F17.200 Nicotine dependence, unspecified, uncomplicated; Z90.49 Acquired absence of other specified parts of digestive tract; Z90.710 Acquired absence of both cervix and uterus; Z88.5 Allergy status to narcotic agent
CPT/HCPCS: 99283

== ENCOUNTER 2019-01-13 12:17 | Emergency (ER) | payer MEDICAID ==
[~2019-01-13] VITALS: Ht 165.1 cm; Wt 88.0 kg
[2019-01-13 14:39] VITALS: BP 118/52
== END 2019-01-13 14:40 | disposition home or self-care (01) ==
LOC: ED 12:55
DX: R06.00 Dyspnea, unspecified (principal); M25.572 Pain in left ankle and joints of left foot; F99 Mental disorder, not otherwise specified; I10 Essential (primary) hypertension; E78.5 Hyperlipidemia, unspecified; K21.9 Gastro-esophageal reflux disease without esophagitis; F31.9 Bipolar disorder, unspecified; F20.9 Schizophrenia, unspecified; Z90.49 Acquired absence of other specified parts of digestive tract; Z90.710 Acquired absence of both cervix and uterus
CPT/HCPCS: 71046; 93005; 99283

== ENCOUNTER 2019-04-09 20:44 | Emergency (ER) | payer MEDICAID ==
[~2019-04-09] VITALS: Ht 165.1 cm; Wt 82.0 kg
[2019-04-09 20:52] VITALS: BP 114/67
[2019-04-09] MEDS ORDERED: IBUPROFEN 600 MG TABLET ONE (21:28)
[2019-04-09] MEDS ORDERED: IBUPROFEN 200 MG TABLET PO ONE (21:30)
== END 2019-04-09 21:46 | disposition home or self-care (01) ==
LOC: ED 21:45
DX: S99.912A Unspecified injury of left ankle, initial encounter (principal); X50.1XXA Overexertion from prolonged static or awkward postures, initial encounter; Y93.89 Activity, other specified; Y92.098 Other place in other non-institutional residence as the place of occurrence of the external cause; Y99.8 Other external cause status
CPT/HCPCS: 99283

== ENCOUNTER 2019-06-04 15:08 | Emergency (ER) | payer MEDICAID ==
[~2019-06-04] VITALS: Ht 165.1 cm; Wt 82.0 kg
[2019-06-04] MEDS ORDERED: PLEASE ENTER HEIGHT AND WEIGHT MC SCH (15:22)
[2019-06-04 15:26] VITALS: BP 124/55
[2019-06-04] MEDS ORDERED: FAMOTIDINE 20 MG TABLET PO ONE (15:30)
[2019-06-04] MEDS ORDERED: FAMOTIDINE 20 MG TABLET ONE (15:44)
--- NOTE | 2019-06-04 15:50 | NUR ---
PT C/O BURNING CP INTERMITTENT AND WHAT SHE SEEMS TO BE DESCRIBING BURNING EPIGASTRIC PAIN THAT HAS BEEN GOING ON FOR SOME TIME
[2019-06-04 15:53] LABS: BASOPHILS # (AUTO) 0.04 x10^3/uL (0-0.1); BASOPHILS % (AUTO) 1 % (0-1); EOSINOPHILS # (AUTO) 0.11 x10^3/uL (0-0.4); EOSINOPHILS % (AUTO) 2 % (1-7); LYMPHOCYTES # (AUTO) 1.66 x10^3/uL (1-3.4); LYMPHOCYTES % (AUTO) 32 % (22-44); MD NO; MEAN CORPUSCULAR HEMOGLOBIN 29.1 pg (27.0-34.8); MEAN CORPUSCULAR HGB CONC 33.6 g/dL (32.4-35.8); MEAN CORPUSCULAR VOLUME 86.8 fL (80-100); MEAN PLATELET VOLUME 10.7 fL (7.4-10.4); MONOCYTES # (AUTO) 0.45 x10^3/uL (0.2-0.8); MONOCYTES % (AUTO) 9 % (2-9); NEUTROPHILS # (AUTO) 2.95 x10^3/uL (1.8-6.8); NEUTROPHILS % (AUTO) 57 % (42-75); PLATELET COUNT 159 x10^3/uL (130-400); RED BLOOD COUNT 3.76 x10^6/uL (3.82-5.3); RED CELL DISTRIBUTION WIDTH 14.8 % (9.6-15.2)
[2019-06-04 15:54] LABS: ALBUMIN 2.9 g/dL (3.4-5.0); ANION GAP 5 mmol/L (5-15); CALCIUM 8.3 mg/dL (8.5-10.1); CHLORIDE 112 mmol/L (98-107)
[2019-06-04 15:57] LABS: ALANINE AMINOTRANSFERASE 11 U/L (12-78); ALKALINE PHOSPHATASE 86 U/L (45-117); BILIRUBIN,TOTAL 0.5 mg/dL (0.2-1.0); CREATININE 2.16 mg/dL (0.55-1.02); TOTAL PROTEIN 6.3 g/dL (6.4-8.2)
[2019-06-04 16:33] LABS: TROPONIN I < 0.015 ng/mL (0.000-0.045)
--- NOTE | 2019-06-04 16:45 | NUR ---
UOB TO BATHROOM, STEADY GAIT
== END 2019-06-04 17:22 | disposition home or self-care (01) ==
LOC: ED 17:07
DX: R07.89 Other chest pain (principal); R06.02 Shortness of breath; E78.5 Hyperlipidemia, unspecified; K21.9 Gastro-esophageal reflux disease without esophagitis; I10 Essential (primary) hypertension; Z90.710 Acquired absence of both cervix and uterus; Z90.49 Acquired absence of other specified parts of digestive tract
CPT/HCPCS: 36415; 71045; 80053; 83690; 84484; 85025; 93005; 99284

== ENCOUNTER 2019-06-28 12:39 | Emergency (ER) | payer MEDICAID ==
[~2019-06-28] VITALS: Ht 165.1 cm; Wt 84.4 kg
--- NOTE | 2019-06-28 12:45 | NUR ---
PT CAME IN CO OF ABD PAIN AND BLACK TARRY STOOL X2 THIS MORNING. BP 128/78. HR 69. BLANKET PROVIDED. CALL LIGHT WITHIN REACH
[2019-06-28] MEDS ORDERED: SODIUM CHLORIDE FLUSH 10ML SYR IVF ONE (13:00)
[2019-06-28] MEDS ORDERED: PANTOPRAZOLE 40 MG IV IV ONE (13:00)
[2019-06-28] MEDS ORDERED: PANTOPRAZOLE 40 MG IV ONE (13:05)
[2019-06-28 13:28] LABS: BASOPHILS # (AUTO) 0.04 x10^3/uL (0-0.1); BASOPHILS % (AUTO) 1 % (0-1); EOSINOPHILS % (AUTO) 2 % (1-7); LYMPHOCYTES # (AUTO) 1.55 x10^3/uL (1-3.4); LYMPHOCYTES % (AUTO) 32 % (22-44); MD NO; MEAN CORPUSCULAR HEMOGLOBIN 28.3 pg (27.0-34.8); MEAN CORPUSCULAR HGB CONC 32.2 g/dL (32.4-35.8); MEAN CORPUSCULAR VOLUME 87.7 fL (80-100); MEAN PLATELET VOLUME 9.5 fL (7.4-10.4); MONOCYTES # (AUTO) 0.41 x10^3/uL (0.2-0.8); MONOCYTES % (AUTO) 8 % (2-9); NEUTROPHILS # (AUTO) 2.79 x10^3/uL (1.8-6.8); NEUTROPHILS % (AUTO) 57 % (42-75); PLATELET COUNT 216 x10^3/uL (130-400); RED BLOOD COUNT 4.07 x10^6/uL (3.82-5.3); RED CELL DISTRIBUTION WIDTH 15.9 % (9.6-15.2)
[2019-06-28 13:29] LABS: MICROSCOPIC INDICATED
[2019-06-28 13:41] LABS: ALANINE AMINOTRANSFERASE 7 U/L (12-78); ALBUMIN 2.9 g/dL (3.4-5.0); ANION GAP 6 mmol/L (5-15); CALCIUM 8.6 mg/dL (8.5-10.1); CHLORIDE 108 mmol/L (98-107); CREATININE 2.02 mg/dL (0.55-1.02)
[2019-06-28 13:43] LABS: ALKALINE PHOSPHATASE 103 U/L (45-117); BILIRUBIN,TOTAL 0.1 mg/dL (0.2-1.0); TOTAL PROTEIN 6.8 g/dL (6.4-8.2)
[2019-06-28 13:52] LABS: CULTURE INDICATED? NO
[2019-06-28 15:28] VITALS: BP 131/44
== END 2019-06-28 16:05 | disposition home or self-care (01) ==
LOC: ED 13:44
DX: I12.9 Hypertensive chronic kidney disease with stage 1 through stage 4 chronic kidney disease, or unspecified chronic kidney disease (principal); N18.3 Chronic kidney disease, stage 3 (moderate); R10.32 Left lower quadrant pain; G20 Parkinson's disease
CPT/HCPCS: 36415; 71045; 74176; 80053; 81001; 83690; 85025; 93005; 96374; 99284; C9113

== ENCOUNTER 2019-08-03 21:35 | Emergency (ER) | payer MEDICAID ==
[~2019-08-03] VITALS: Ht 165.1 cm; Wt 82.0 kg
[2019-08-03 21:48] VITALS: BP 118/47
[2019-08-03] MEDS ORDERED: LORazepam 1MG TABLET PO ONE (22:00)
[2019-08-03 22:05] LABS: BASOPHILS # (AUTO) 0.04 x10^3/uL (0-0.1); BASOPHILS % (AUTO) 1 % (0-1); EOSINOPHILS # (AUTO) 0.16 x10^3/uL (0-0.4); EOSINOPHILS % (AUTO) 3 % (1-7); LYMPHOCYTES # (AUTO) 1.54 x10^3/uL (1-3.4); LYMPHOCYTES % (AUTO) 26 % (22-44); MD NO; MEAN CORPUSCULAR HEMOGLOBIN 29.1 pg (27.0-34.8); MEAN CORPUSCULAR HGB CONC 33.4 g/dL (32.4-35.8); MONOCYTES # (AUTO) 0.51 x10^3/uL (0.2-0.8); MONOCYTES % (AUTO) 9 % (2-9); NEUTROPHILS # (AUTO) 3.74 x10^3/uL (1.8-6.8); NEUTROPHILS % (AUTO) 63 % (42-75); PLATELET COUNT 178 x10^3/uL (130-400); RED BLOOD COUNT 3.77 x10^6/uL (3.82-5.3); RED CELL DISTRIBUTION WIDTH 16.3 % (9.6-15.2)
[2019-08-03 22:10] LABS: MICROSCOPIC NOT IND
[2019-08-03 22:12] LABS: CULTURE INDICATED? NO
[2019-08-03 22:15] LABS: ALBUMIN 3.2 g/dL (3.4-5.0); ANION GAP 9 mmol/L (5-15); CALCIUM 8.7 mg/dL (8.5-10.1); CHLORIDE 109 mmol/L (98-107)
[2019-08-03 22:18] LABS: ALANINE AMINOTRANSFERASE 9 U/L (12-78); ALKALINE PHOSPHATASE 105 U/L (45-117); BILIRUBIN,TOTAL 0.2 mg/dL (0.2-1.0); CREATININE 1.85 mg/dL (0.55-1.02); TOTAL PROTEIN 6.8 g/dL (6.4-8.2)
--- NOTE | 2019-08-03 22:37 | NUR ---
Patient CARLINE truong with chronic psychosis. Patient states she is hearing voices and she talks to them. The voices do not tell her to do anything. She denies SI currently but states if she knew how to then she would harm herself. Patient is calm and cooperative. Respirations even and unlabored. Belongings bagged and placed in locked cabinet. Sitter outside.
--- NOTE | 2019-08-03 22:38 | NUR ---
[place] and drinks provided to patient.
--- NOTE | 2019-08-03 22:46 | NUR ---
YUMIKO RN: TELEPSYCH PAGED; BOT PLACED IN ROOM.
[2019-08-03 22:58] LABS: AMPHETAMINE SCREEN, URINE Negative (Negative); BARBITURATE SCREEN, URINE Negative (Negative); BENZODIAZEPINE SCREEN, URINE Negative (Negative); CANNABINOID SCREEN, URINE Negative (Negative); COCAINE SCREEN, URINE Negative (Negative); METHADONE SCREEN, URINE Negative (Negative); OPIATE SCREEN, URINE Negative (Negative)
[2019-08-03] MEDS ORDERED: ACETAMINOPHEN 325 MG TABLET ONE (22:58)
[2019-08-03] MEDS ORDERED: ACETAMINOPHEN 325 MG TABLET PO ONE (23:00)
[2019-08-03] MEDS ORDERED: LORazepam 1MG TABLET ONE (23:01)
--- NOTE | 2019-08-03 23:27 | NUR ---
Patient resting in gurney with no complaints. Respirations even and unlabored. Sitter outside room.
--- NOTE | 2019-08-04 01:03 | NUR ---
Patient consulting with SOC.
--- NOTE | 2019-08-04 02:17 | NUR ---
Patient repeatedly asking for her clothes stating the doctor told her she won't be staying. Advised patient her clothes will be returned when discharge instructions are given.
--- NOTE | 2019-08-04 03:32 | NUR ---
Discharge instructions given. All questions and concerns addressed. Advised patient to f/u with psych tomorrow. Patient ambulatory with a steady gait. Belongings with patient.
== END 2019-08-04 03:34 ==
LOC: ED 22:35
DX: F20.0 Paranoid schizophrenia (principal); I10 Essential (primary) hypertension; E78.5 Hyperlipidemia, unspecified; F17.200 Nicotine dependence, unspecified, uncomplicated; Z90.49 Acquired absence of other specified parts of digestive tract; Z90.710 Acquired absence of both cervix and uterus
CPT/HCPCS: 36415; 80053; 80307; 81003; 85025; 99284; 99406

== ENCOUNTER 2019-09-25 20:17 | Emergency (ER) | payer MEDICAID ==
[~2019-09-25] VITALS: Ht 170.2 cm; Wt 82.0 kg
[2019-09-25 20:19] VITALS: BP 110/70
[2019-09-25] MEDS ORDERED: FAMOTIDINE 20 MG TABLET PO ONE (21:00)
[2019-09-25] MEDS ORDERED: FAMOTIDINE 20 MG TABLET ONE (21:01)
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
--- NOTE | 2019-09-25 21:27 | NUR ---
PT AMBULATES TO BR WITH STEADY GAIT, NO COMPLAINTS
--- NOTE | 2019-09-25 21:36 | NUR ---
pt states she is ready to go home, requesting taxi voucher, erp notified
== END 2019-09-25 21:52 | disposition home or self-care (01) ==
LOC: ED 21:08
DX: F41.1 Generalized anxiety disorder (principal); I10 Essential (primary) hypertension; R12 Heartburn; Z00.00 Encounter for general adult medical examination without abnormal findings
CPT/HCPCS: 99283

== ENCOUNTER 2019-11-14 14:05 | Emergency (ER) | payer MEDICAID ==
[~2019-11-14] VITALS: Ht 165.1 cm; Wt 83.0 kg
[2019-11-14 14:13] VITALS: BP 121/58
== END 2019-11-14 14:43 | disposition home or self-care (01) ==
LOC: ED 14:30
DX: M54.16 Radiculopathy, lumbar region (principal); I10 Essential (primary) hypertension; E78.5 Hyperlipidemia, unspecified; Z90.49 Acquired absence of other specified parts of digestive tract; Z90.710 Acquired absence of both cervix and uterus
CPT/HCPCS: 99283

== ENCOUNTER 2019-11-25 22:27 | Inpatient (IN) | payer MEDICAID ==
[~2019-11-25] VITALS: Ht 165.1 cm; Wt 82.9 kg
[2019-11-25 22:50] LABS: BASOPHILS # (AUTO) 0.04 x10^3/uL (0-0.1); BASOPHILS % (AUTO) 0 % (0-1); EOSINOPHILS # (AUTO) 0.05 x10^3/uL (0-0.4); EOSINOPHILS % (AUTO) 1 % (1-7); LYMPHOCYTES # (AUTO) 1.23 x10^3/uL (1-3.4); LYMPHOCYTES % (AUTO) 13 % (22-44); MD NO; MEAN CORPUSCULAR HEMOGLOBIN 29.3 pg (27.0-34.8); MEAN CORPUSCULAR HGB CONC 32.7 g/dL (32.4-35.8); MEAN CORPUSCULAR VOLUME 89.6 fL (80-100); MEAN PLATELET VOLUME 10.5 fL (7.4-10.4); MONOCYTES # (AUTO) 0.65 x10^3/uL (0.2-0.8); MONOCYTES % (AUTO) 7 % (2-9); NEUTROPHILS # (AUTO) 7.33 x10^3/uL (1.8-6.8); NEUTROPHILS % (AUTO) 79 % (42-75); PLATELET COUNT 193 x10^3/uL (130-400); RED BLOOD COUNT 3.82 x10^6/uL (3.82-5.3); RED CELL DISTRIBUTION WIDTH 16.5 % (9.6-15.2)
[2019-11-25 23:08] LABS: ALANINE AMINOTRANSFERASE 12 U/L (12-78); ALBUMIN 3.2 g/dL (3.4-5.0); ANION GAP 8 mmol/L (5-15); CALCIUM 8.7 mg/dL (8.5-10.1); CHLORIDE 110 mmol/L (98-107); CREATININE 3.28 mg/dL (0.55-1.02)
--- NOTE | 2019-11-25 23:08 | NUR ---
Pt brought in by [facility] for SI. Pt reports taking "rest of Sinemet prescription" last night, amount of pills unknown. Pt states she took them with intent to hurt self and she would "like to ." Pt states she is still suicidal, reports c/o N/V. EMS reports observing coffee ground emesis upon arrival to pt home. PD placed pt on legal hold. Bedrails up x2, room secured with guard doors down, sitter at bedside, belongings collected, pt placed in gown and provided with warm blankets
[2019-11-25 23:11] LABS: ALKALINE PHOSPHATASE 112 U/L (45-117); BILIRUBIN,TOTAL 0.5 mg/dL (0.2-1.0); TOTAL PROTEIN 6.9 g/dL (6.4-8.2)
--- NOTE | 2019-11-25 23:33 | NUR ---
THIS TECH DID EKG
--- NOTE | 2019-11-25 23:55 | NUR ---
Report given to Svetlana WAGNER
[2019-11-26] MEDS ORDERED: SODIUM CHLORIDE 0.9% 1,000ML IVBOLUS ONE
--- NOTE | 2019-11-26 00:08 | NUR ---
RECEIVED REPORT FROM KRISTY DELACRUZ. PT LAYING IN BED, EYES CLOSED, RESPIRATIONS EVEN AND UNLABORED, AROUSABLE TO VERBAL STIMULI. ADMITTING MD TO BEDSIDE. PT UPDATED ON POC, ALL QUESTIONS ANSWERED.
--- NOTE | 2019-11-26 00:22 | NUR ---
PT AMBULATORY TO BATHROOM, STEADY GAIT, CLEAN CATCH URINE COLLECTED. PT PLACED ON CARDIAC, BP AND O2 MONITOR.
[2019-11-26] MEDS ORDERED: hydrALAzine 20 MG/ML, 1ML IVPush PRN (00:30)
[2019-11-26] MEDS ORDERED: NICOTINE 14MG/24 HR PATCH.TD24 ONE (00:48)
[2019-11-26 00:52] LABS: AMPHETAMINE SCREEN, URINE Negative (Negative); BARBITURATE SCREEN, URINE Negative (Negative); BENZODIAZEPINE SCREEN, URINE Negative (Negative); CANNABINOID SCREEN, URINE Negative (Negative); COCAINE SCREEN, URINE Negative (Negative); METHADONE SCREEN, URINE Negative (Negative); OPIATE SCREEN, URINE Negative (Negative)
[2019-11-26] MEDS: NICOTINE 14MG/24 HR PATCH.TD24 TD SCH (00:55)
[2019-11-26] MEDS: LACTATED RINGERS 1,000 ML IV SCH ×3 (00:55→18:07)
[2019-11-26 00:56] LABS: INTERNATIONAL NORMALIZED RATIO 0.99 (0.93-1.1); PROTHROMBIN TIME 10.5 Seconds (9.6-11.5)
--- NOTE | 2019-11-26 00:58 | NUR ---
VERBALLY CONFIRMED WITH PT THAT SHE DID NOT HAVE A NICOTINE PATCH IN PLACE PRIOR TO ADMINISTERING ONE.
--- NOTE | 2019-11-26 01:55 | NUR ---
PT SLEEPING, EYES CLOSED, RESPIRATIONS EVEN AND UNLABORED. VSS. PT REMAINS IN VIEW OF THE SITTER. WILL CONTINUE TO MONITOR.
[2019-11-26] MEDS ORDERED: ARIP1064 IM (02:32)
--- NOTE | 2019-11-26 02:35 | NUR ---
PT CONDITION REMAINS UNCHANGED. SNORING CAN BE HEARD. PT REMAINS IN VIEW OF SITTER.
--- NOTE | 2019-11-26 02:36 | NUR ---
TP RN: HOSPITAL BED REQUESTED FOR PT.
[2019-11-26 03:31] LABS: CHLORIDE,URINE RANDOM 26 mmol/L; POTASSIUM,URINE RANDOM 18 mmol/L; SODIUM,URINE RANDOM 31 mmol/L
--- NOTE | 2019-11-26 03:33 | NUR ---
PT CONDITION UNCHANGED, REMAINS IN VIEW OF THE SITTER.
[2019-11-26] MEDS ORDERED: MORPHINE SULFATE 4 MG/ML, 1ML IVPush PRN (04:00)
[2019-11-26] MEDS ORDERED: MORPHINE SULFATE 4 MG/ML, 1ML ONE (04:03)
--- NOTE | 2019-11-26 04:29 | NUR ---
PT SLEEPING AND SITTER REMAINS IN THE HALLWAY TO WATCH.
--- NOTE | 2019-11-26 04:59 | NUR ---
REPORT GIVEN TO LORRI MELGAR RN.
[2019-11-26 05:37] VITALS: BP 93/47
[2019-11-26 06:42] VITALS: BP 111/71
[2019-11-26 09:12] LABS: BASOPHILS # (AUTO) 0.03 x10^3/uL (0-0.1); BASOPHILS % (AUTO) 1 % (0-1); EOSINOPHILS # (AUTO) 0.05 x10^3/uL (0-0.4); EOSINOPHILS % (AUTO) 1 % (1-7); LYMPHOCYTES # (AUTO) 1.03 x10^3/uL (1-3.4); LYMPHOCYTES % (AUTO) 16 % (22-44); MD NO; MEAN CORPUSCULAR HEMOGLOBIN 29.4 pg (27.0-34.8); MEAN CORPUSCULAR HGB CONC 32.7 g/dL (32.4-35.8); MEAN PLATELET VOLUME 10.3 fL (7.4-10.4); MONOCYTES # (AUTO) 0.46 x10^3/uL (0.2-0.8); MONOCYTES % (AUTO) 7 % (2-9); NEUTROPHILS # (AUTO) 4.73 x10^3/uL (1.8-6.8); NEUTROPHILS % (AUTO) 75 % (42-75); PLATELET COUNT 158 x10^3/uL (130-400)
[2019-11-26 09:21] LABS: ALBUMIN 2.8 g/dL (3.4-5.0); ANION GAP 9 mmol/L (5-15); CALCIUM 8.4 mg/dL (8.5-10.1); CHLORIDE 114 mmol/L (98-107)
[2019-11-26] MEDS: PANTOPRAZOLE 40 MG IV IVPush SCH ×2 (09:24→22:14)
[2019-11-26 09:32] LABS: ALANINE AMINOTRANSFERASE 12 U/L (12-78); ALKALINE PHOSPHATASE 105 U/L (45-117); BILIRUBIN,TOTAL 0.4 mg/dL (0.2-1.0); CREATININE 2.75 mg/dL (0.55-1.02); TOTAL PROTEIN 6.1 g/dL (6.4-8.2)
[2019-11-26 09:51] LABS: CHOLESTEROL, TOTAL 254 mg/dL (140-239)
[2019-11-26 09:54] LABS: CHOL/HDL RATIO 7.1; HDL CHOL % 14 % (28-40); HDL CHOLESTEROL (DIRECT) 36 mg/dL (40-60); TRIGLYCERIDES 403 mg/dL (50-200)
[2019-11-26 12:13] VITALS: BP 119/74
[2019-11-26] MEDS ORDERED: CARB1TAB3 PO (16:08)
[2019-11-26 22:06] VITALS: BP 119/71
[2019-11-26] MEDS: ATORVASTATIN 40 MG TABLET PO SCH (22:13)
[2019-11-26] MEDS: ACETAMINOPHEN 325 MG TABLET PO PRN (22:13)
[2019-11-27 01:06] LABS: TROPONIN I 0.998 ng/mL (0.000-0.045)
[2019-11-27] MEDS: NICOTINE 14MG/24 HR PATCH.TD24 TD SCH (01:25)
[2019-11-27] MEDS: ACETAMINOPHEN 325 MG TABLET PO PRN ×2 (02:35→20:38)
[2019-11-27] MEDS: LACTATED RINGERS 1,000 ML IV SCH ×3 (02:35→21:03)
[2019-11-27 02:40] VITALS: BP 110/71
[2019-11-27 05:30] LABS: BASOPHILS # (AUTO) 0.02 x10^3/uL (0-0.1); BASOPHILS % (AUTO) 0 % (0-1); EOSINOPHILS # (AUTO) 0.08 x10^3/uL (0-0.4); EOSINOPHILS % (AUTO) 2 % (1-7); LYMPHOCYTES # (AUTO) 1.34 x10^3/uL (1-3.4); LYMPHOCYTES % (AUTO) 24 % (22-44); MD NO; MEAN CORPUSCULAR HGB CONC 32.5 g/dL (32.4-35.8); MEAN CORPUSCULAR VOLUME 89.3 fL (80-100); MEAN PLATELET VOLUME 10.2 fL (7.4-10.4); MONOCYTES # (AUTO) 0.41 x10^3/uL (0.2-0.8); MONOCYTES % (AUTO) 8 % (2-9); NEUTROPHILS # (AUTO) 3.67 x10^3/uL (1.8-6.8); NEUTROPHILS % (AUTO) 66 % (42-75); PLATELET COUNT 148 x10^3/uL (130-400); RED BLOOD COUNT 3.23 x10^6/uL (3.82-5.3); RED CELL DISTRIBUTION WIDTH 16.4 % (9.6-15.2)
[2019-11-27 05:39] LABS: ANION GAP 8 mmol/L (5-15); CALCIUM 8.6 mg/dL (8.5-10.1); CHLORIDE 114 mmol/L (98-107)
[2019-11-27 05:40] LABS: CREATININE 2.45 mg/dL (0.55-1.02)
[2019-11-27] MEDS: ASPIRIN 81 MG TABLET EC PO SCH (06:07)
[2019-11-27 07:58] VITALS: BP 131/73
[2019-11-27] MEDS: PANTOPRAZOLE 40 MG IV IVPush SCH ×2 (08:18→20:38)
[2019-11-27] MEDS ORDERED: REGADENOSON 0.4 MG/5 ML SYRINGE ONE (08:40)
[2019-11-27] MEDS: ONDANSETRON 2MG/ML, 2ML IVPush PRN (10:55)
[2019-11-27 13:48] VITALS: BP 125/68
[2019-11-27 19:29] VITALS: BP 116/70
[2019-11-27] MEDS: ATORVASTATIN 40 MG TABLET PO SCH (20:38)
[2019-11-28] MEDS: ACETAMINOPHEN 325 MG TABLET PO PRN ×4 (01:20→21:04)
[2019-11-28] MEDS: NICOTINE 14MG/24 HR PATCH.TD24 TD SCH ×2 (01:56→21:05)
[2019-11-28 03:27] VITALS: BP 130/77
[2019-11-28] MEDS: LACTATED RINGERS 1,000 ML IV SCH ×3 (04:38→20:30)
[2019-11-28 04:57] LABS: BASOPHILS # (AUTO) 0.05 x10^3/uL (0-0.1); BASOPHILS % (AUTO) 1 % (0-1); EOSINOPHILS # (AUTO) 0.12 x10^3/uL (0-0.4); EOSINOPHILS % (AUTO) 2 % (1-7); LYMPHOCYTES # (AUTO) 1.58 x10^3/uL (1-3.4); LYMPHOCYTES % (AUTO) 29 % (22-44); MD NO; MEAN CORPUSCULAR HEMOGLOBIN 29.2 pg (27.0-34.8); MEAN CORPUSCULAR HGB CONC 32.4 g/dL (32.4-35.8); MEAN CORPUSCULAR VOLUME 90.1 fL (80-100); MEAN PLATELET VOLUME 10.5 fL (7.4-10.4); MONOCYTES # (AUTO) 0.43 x10^3/uL (0.2-0.8); MONOCYTES % (AUTO) 8 % (2-9); NEUTROPHILS # (AUTO) 3.21 x10^3/uL (1.8-6.8); NEUTROPHILS % (AUTO) 60 % (42-75); PLATELET COUNT 137 x10^3/uL (130-400); RED BLOOD COUNT 3.06 x10^6/uL (3.82-5.3); RED CELL DISTRIBUTION WIDTH 16.1 % (9.6-15.2)
[2019-11-28 05:04] LABS: ALBUMIN 2.3 g/dL (3.4-5.0); ANION GAP 7 mmol/L (5-15); CALCIUM 8.2 mg/dL (8.5-10.1); CHLORIDE 110 mmol/L (98-107)
[2019-11-28 05:08] LABS: ALANINE AMINOTRANSFERASE 32 U/L (12-78); ALKALINE PHOSPHATASE 90 U/L (45-117); BILIRUBIN,TOTAL 0.2 mg/dL (0.2-1.0); CREATININE 2.27 mg/dL (0.55-1.02); TOTAL PROTEIN 5.4 g/dL (6.4-8.2)
[2019-11-28] MEDS: ASPIRIN 81 MG TABLET EC PO SCH (06:28)
[2019-11-28 07:00] VITALS: BP 114/70
[2019-11-28] MEDS: PANTOPRAZOLE 40 MG IV IVPush SCH ×2 (09:19→21:04)
[2019-11-28 14:40] VITALS: BP 121/73
[2019-11-28 19:20] VITALS: BP 140/82
[2019-11-28] MEDS: ATORVASTATIN 40 MG TABLET PO SCH (21:04)
[2019-11-29 00:20] VITALS: BP 144/81
[2019-11-29] MEDS: ACETAMINOPHEN 325 MG TABLET PO PRN ×3 (03:20→20:06)
[2019-11-29 05:17] LABS: BASOPHILS # (AUTO) 0.03 x10^3/uL (0-0.1); BASOPHILS % (AUTO) 1 % (0-1); EOSINOPHILS # (AUTO) 0.12 x10^3/uL (0-0.4); EOSINOPHILS % (AUTO) 2 % (1-7); LYMPHOCYTES # (AUTO) 1.56 x10^3/uL (1-3.4); LYMPHOCYTES % (AUTO) 31 % (22-44); MD NO; MEAN CORPUSCULAR HEMOGLOBIN 29.3 pg (27.0-34.8); MEAN CORPUSCULAR HGB CONC 32.9 g/dL (32.4-35.8); MEAN CORPUSCULAR VOLUME 89.1 fL (80-100); MEAN PLATELET VOLUME 10.7 fL (7.4-10.4); MONOCYTES # (AUTO) 0.43 x10^3/uL (0.2-0.8); MONOCYTES % (AUTO) 9 % (2-9); NEUTROPHILS # (AUTO) 2.86 x10^3/uL (1.8-6.8); NEUTROPHILS % (AUTO) 57 % (42-75); PLATELET COUNT 142 x10^3/uL (130-400); RED BLOOD COUNT 3.24 x10^6/uL (3.82-5.3); RED CELL DISTRIBUTION WIDTH 16.1 % (9.6-15.2)
[2019-11-29 05:27] LABS: ANION GAP 10 mmol/L (5-15); CALCIUM 8.4 mg/dL (8.5-10.1); CHLORIDE 112 mmol/L (98-107)
[2019-11-29] MEDS: ASPIRIN 81 MG TABLET EC PO SCH (05:35)
[2019-11-29 07:08] VITALS: BP 157/77
[2019-11-29] MEDS: LACTATED RINGERS 1,000 ML IV SCH (09:27)
[2019-11-29] MEDS: PANTOPRAZOLE 40 MG IV IVPush SCH (09:27)
[2019-11-29 13:15] VITALS: BP 151/70
[2019-11-29] MEDS ORDERED: BISACODYL 10 MG SUPP PR PRN (15:30)
[2019-11-29] MEDS: PANTOPRAZOLE 40MG TABLET PO SCH (16:06)
[2019-11-29 19:44] VITALS: BP 165/83
[2019-11-29] MEDS: ATORVASTATIN 40 MG TABLET PO SCH (20:04)
[2019-11-30 00:13] VITALS: BP 147/78
[2019-11-30] MEDS: NICOTINE 14MG/24 HR PATCH.TD24 TD SCH ×2 (00:14→20:29)
[2019-11-30] MEDS: LACTATED RINGERS 1,000 ML IV SCH ×2 (00:14→14:43)
[2019-11-30] MEDS: ACETAMINOPHEN 325 MG TABLET PO PRN ×3 (02:28→17:42)
[2019-11-30] MEDS: ASPIRIN 81 MG TABLET EC PO SCH (05:03)
[2019-11-30 05:58] LABS: BASOPHILS # (AUTO) 0.05 x10^3/uL (0-0.1); BASOPHILS % (AUTO) 1 % (0-1); EOSINOPHILS # (AUTO) 0.14 x10^3/uL (0-0.4); EOSINOPHILS % (AUTO) 3 % (1-7); LYMPHOCYTES # (AUTO) 1.61 x10^3/uL (1-3.4); LYMPHOCYTES % (AUTO) 31 % (22-44); MD NO; MEAN CORPUSCULAR HEMOGLOBIN 29.3 pg (27.0-34.8); MEAN CORPUSCULAR HGB CONC 33.1 g/dL (32.4-35.8); MEAN CORPUSCULAR VOLUME 88.8 fL (80-100); MEAN PLATELET VOLUME 10.9 fL (7.4-10.4); MONOCYTES # (AUTO) 0.41 x10^3/uL (0.2-0.8); MONOCYTES % (AUTO) 8 % (2-9); NEUTROPHILS # (AUTO) 3.02 x10^3/uL (1.8-6.8); NEUTROPHILS % (AUTO) 58 % (42-75); PLATELET COUNT 153 x10^3/uL (130-400); RED BLOOD COUNT 3.36 x10^6/uL (3.82-5.3); RED CELL DISTRIBUTION WIDTH 15.9 % (9.6-15.2)
[2019-11-30 06:00] LABS: CHLORIDE 112 mmol/L (98-107)
[2019-11-30 06:04] LABS: ANION GAP 6 mmol/L (5-15); CALCIUM 8.5 mg/dL (8.5-10.1); CREATININE 2.18 mg/dL (0.55-1.02)
[2019-11-30 06:26] VITALS: BP 165/70
[2019-11-30] MEDS: PANTOPRAZOLE 40MG TABLET PO SCH ×2 (08:06→17:42)
[2019-11-30 14:24] VITALS: BP 162/85
[2019-11-30] MEDS: ONDANSETRON 2MG/ML, 2ML IVPush PRN (14:46)
[2019-11-30 20:19] VITALS: BP 157/81
[2019-11-30] MEDS: ATORVASTATIN 40 MG TABLET PO SCH (20:29)
[2019-12-01 00:20] VITALS: BP 147/63
[2019-12-01] MEDS: LACTATED RINGERS 1,000 ML IV SCH ×2 (00:20→09:52)
[2019-12-01] MEDS: ACETAMINOPHEN 325 MG TABLET PO PRN ×2 (03:22→07:42)
[2019-12-01] MEDS: ASPIRIN 81 MG TABLET EC PO SCH (05:26)
[2019-12-01 06:02] LABS: BASOPHILS # (AUTO) 0.03 x10^3/uL (0-0.1); BASOPHILS % (AUTO) 1 % (0-1); EOSINOPHILS # (AUTO) 0.19 x10^3/uL (0-0.4); EOSINOPHILS % (AUTO) 4 % (1-7); LYMPHOCYTES # (AUTO) 1.43 x10^3/uL (1-3.4); LYMPHOCYTES % (AUTO) 27 % (22-44); MD NO; MEAN CORPUSCULAR HEMOGLOBIN 29.4 pg (27.0-34.8); MEAN CORPUSCULAR HGB CONC 32.9 g/dL (32.4-35.8); MEAN CORPUSCULAR VOLUME 89.4 fL (80-100); MEAN PLATELET VOLUME 10.8 fL (7.4-10.4); MONOCYTES # (AUTO) 0.39 x10^3/uL (0.2-0.8); MONOCYTES % (AUTO) 7 % (2-9); NEUTROPHILS # (AUTO) 3.25 x10^3/uL (1.8-6.8); NEUTROPHILS % (AUTO) 61 % (42-75); PLATELET COUNT 160 x10^3/uL (130-400); RED BLOOD COUNT 3.32 x10^6/uL (3.82-5.3); RED CELL DISTRIBUTION WIDTH 16.4 % (9.6-15.2)
[2019-12-01 06:14] LABS: ANION GAP 6 mmol/L (5-15); CALCIUM 8.3 mg/dL (8.5-10.1); CHLORIDE 112 mmol/L (98-107)
[2019-12-01 06:30] VITALS: BP 153/82
[2019-12-01] MEDS: PANTOPRAZOLE 40MG TABLET PO SCH ×2 (07:42→16:28)
[2019-12-01 12:20] VITALS: BP 161/88
[2019-12-01 19:05] VITALS: BP 138/77
[2019-12-01 20:17] VITALS: BP 130/74
[2019-12-01] MEDS: NICOTINE 14MG/24 HR PATCH.TD24 TD SCH (20:32)
[2019-12-01] MEDS: ATORVASTATIN 40 MG TABLET PO SCH (20:32)
[2019-12-02 00:06] VITALS: BP 147/65
[2019-12-02] MEDS: ASPIRIN 81 MG TABLET EC PO SCH (06:15)
[2019-12-02 06:38] LABS: BASOPHILS # (AUTO) 0.03 x10^3/uL (0-0.1); BASOPHILS % (AUTO) 1 % (0-1); EOSINOPHILS % (AUTO) 3 % (1-7); LYMPHOCYTES # (AUTO) 1.62 x10^3/uL (1-3.4); LYMPHOCYTES % (AUTO) 26 % (22-44); MD NO; MEAN CORPUSCULAR HEMOGLOBIN 28.9 pg (27.0-34.8); MEAN CORPUSCULAR HGB CONC 32.4 g/dL (32.4-35.8); MEAN CORPUSCULAR VOLUME 89.3 fL (80-100); MEAN PLATELET VOLUME 11.1 fL (7.4-10.4); MONOCYTES % (AUTO) 8 % (2-9); NEUTROPHILS # (AUTO) 3.78 x10^3/uL (1.8-6.8); NEUTROPHILS % (AUTO) 62 % (42-75); PLATELET COUNT 177 x10^3/uL (130-400); RED BLOOD COUNT 3.44 x10^6/uL (3.82-5.3)
[2019-12-02 06:46] LABS: ANION GAP 5 mmol/L (5-15); CALCIUM 8.5 mg/dL (8.5-10.1); CHLORIDE 113 mmol/L (98-107)
[2019-12-02] MEDS: PANTOPRAZOLE 40MG TABLET PO SCH ×2 (07:39→17:01)
[2019-12-02 07:45] VITALS: BP 138/86
[2019-12-02] MEDS: ACETAMINOPHEN 325 MG TABLET PO PRN ×3 (09:27→21:24)
[2019-12-02 12:48] VITALS: BP 137/64
[2019-12-02 19:32] VITALS: BP 148/84
[2019-12-02] MEDS: ATORVASTATIN 40 MG TABLET PO SCH (21:00)
[2019-12-02] MEDS: NICOTINE 14MG/24 HR PATCH.TD24 TD SCH (21:24)
[2019-12-03 01:29] VITALS: BP 155/81
[2019-12-03] MEDS: ACETAMINOPHEN 325 MG TABLET PO PRN ×2 (04:23→18:42)
[2019-12-03] MEDS: ASPIRIN 81 MG TABLET EC PO SCH (06:13)
[2019-12-03 06:37] LABS: BASOPHILS # (AUTO) 0.04 x10^3/uL (0-0.1); BASOPHILS % (AUTO) 1 % (0-1); EOSINOPHILS # (AUTO) 0.19 x10^3/uL (0-0.4); EOSINOPHILS % (AUTO) 3 % (1-7); LYMPHOCYTES # (AUTO) 1.72 x10^3/uL (1-3.4); LYMPHOCYTES % (AUTO) 29 % (22-44); MD NO; MEAN CORPUSCULAR HGB CONC 32.5 g/dL (32.4-35.8); MEAN CORPUSCULAR VOLUME 89.2 fL (80-100); MEAN PLATELET VOLUME 11.6 fL (7.4-10.4); MONOCYTES # (AUTO) 0.49 x10^3/uL (0.2-0.8); MONOCYTES % (AUTO) 8 % (2-9); NEUTROPHILS # (AUTO) 3.49 x10^3/uL (1.8-6.8); NEUTROPHILS % (AUTO) 59 % (42-75); PLATELET COUNT 161 x10^3/uL (130-400); RED BLOOD COUNT 3.52 x10^6/uL (3.82-5.3)
[2019-12-03 06:51] LABS: ANION GAP 5 mmol/L (5-15); CALCIUM 8.7 mg/dL (8.5-10.1); CHLORIDE 113 mmol/L (98-107); CREATININE 2.44 mg/dL (0.55-1.02)
[2019-12-03 08:09] VITALS: BP 156/81
[2019-12-03] MEDS: PANTOPRAZOLE 40MG TABLET PO SCH ×2 (10:39→18:42)
[2019-12-03 13:31] VITALS: BP 158/82
[2019-12-03] MEDS: CARBIDOPA/LEVODOPA 25 MG/250 MG TABLET PO SCH ×2 (18:42→20:23)
[2019-12-03] MEDS: ATORVASTATIN 40 MG TABLET PO SCH (20:24)
[2019-12-03] MEDS: NICOTINE 14MG/24 HR PATCH.TD24 TD SCH (20:24)
[2019-12-03] MEDS: DIVALPROEX 500 MG TAB.ER.24H PO SCH (20:24)
[2019-12-03 20:35] VITALS: BP 142/78
[2019-12-04 00:25] VITALS: BP 123/76
[2019-12-04] MEDS: ACETAMINOPHEN 325 MG TABLET PO PRN ×2 (00:30→09:37)
[2019-12-04] MEDS: ASPIRIN 81 MG TABLET EC PO SCH (05:58)
[2019-12-04 06:47] LABS: ANION GAP 7 mmol/L (5-15); CALCIUM 8.9 mg/dL (8.5-10.1); CHLORIDE 110 mmol/L (98-107); CREATININE 2.31 mg/dL (0.55-1.02)
[2019-12-04 08:07] VITALS: BP 132/61
[2019-12-04] MEDS: CARBIDOPA/LEVODOPA 25 MG/250 MG TABLET PO SCH ×2 (09:05→16:17)
[2019-12-04] MEDS: PANTOPRAZOLE 40MG TABLET PO SCH ×2 (09:05→16:17)
[2019-12-04] MEDS: DIVALPROEX 500 MG TAB.ER.24H PO SCH (09:05)
[2019-12-04 13:08] VITALS: BP 156/80
[2019-12-04] MEDS ORDERED: ASPI81TA45 PO (16:01)
[2019-12-04] MEDS ORDERED: ATOR40TA78 PO (16:01)
[2019-12-04 18:36] VITALS: BP 122/86
== END 2019-12-04 18:45 | DRG 817 ==
LOC: ED 23:15 → EDIP 11-26 00:29 → 5SO 11-26 05:10 → 4WST 11-28 12:09
PROVIDERS: ADMIT Hospitalist; ATTEND Hospitalist
DX: T42.8X2A Poisoning by antiparkinsonism drugs and other central muscle-tone depressants, intentional self-harm, initial encounter (principal); I21.A1 Myocardial infarction type 2; N17.0 Acute kidney failure with tubular necrosis; D63.8 Anemia in other chronic diseases classified elsewhere; G20 Parkinson's disease; F20.9 Schizophrenia, unspecified; E78.5 Hyperlipidemia, unspecified; F17.210 Nicotine dependence, cigarettes, uncomplicated; F31.9 Bipolar disorder, unspecified; F41.1 Generalized anxiety disorder; I12.9 Hypertensive chronic kidney disease with stage 1 through stage 4 chronic kidney disease, or unspecified chronic kidney disease; K21.9 Gastro-esophageal reflux disease without esophagitis; K92.2 Gastrointestinal hemorrhage, unspecified; M54.16 Radiculopathy, lumbar region; N18.4 Chronic kidney disease, stage 4 (severe); Z90.710 Acquired absence of both cervix and uterus; Z90.49 Acquired absence of other specified parts of digestive tract; Y92.098 Other place in other non-institutional residence as the place of occurrence of the external cause; Z98.51 Tubal ligation status; Z82.49 Family history of ischemic heart disease and other diseases of the circulatory system
CPT/HCPCS: 36415; 71045; 76770; 78452; 80048; 80053; 80061; 80164; 80307; 82436; 82570; 83036; 83721; 83735; 84100; 84133; 84300; 84443; 84484; 85025; 85610; 93005; 93017; 93306; 96361; 96374; 96375; 99285; G0378; J2405; J2785; A9502; C9113; J2270; J7030; J7120

== ENCOUNTER 2019-12-04 17:30 | Inpatient (IN) | payer MEDICAID ==
[~2019-12-04] VITALS: Ht 165.1 cm; Wt 79.0 kg
[~2019-12-04 17:30] MED LIST changes: +ARIP1064 IM; +ASPI81TA45 PO; +ATOR40TA78 PO; +CARB1TAB3 PO
[2019-12-04] MEDS ORDERED: DOCUSATE 100 MG CAPSULE PO PRN (18:00)
[2019-12-04] MEDS ORDERED: TRAZODONE 50MG TABLET PO PRN (18:00)
[2019-12-04] MEDS ORDERED: POLYETHYLENE GLYCOL 17 GM PACKET PO PRN (18:00)
[2019-12-04] MEDS ORDERED: BISACODYL 10 MG SUPP PR PRN (18:00)
[2019-12-04] MEDS ORDERED: ONDANSETRON ODT 4 MG PO PRN (18:00)
[2019-12-04 19:48] VITALS: BP 118/78
[2019-12-04 20:18] VITALS: BP 118/78
[2019-12-04] MEDS: DIVALPROEX 500 MG TAB.ER.24H PO SCH (21:03)
[2019-12-04] MEDS: ATORVASTATIN 40 MG TABLET PO SCH (21:03)
[2019-12-04] MEDS: NICOTINE 14MG/24 HR PATCH.TD24 TD SCH (21:03)
[2019-12-04] MEDS: ACETAMINOPHEN 325 MG TABLET PO PRN (21:07)
[2019-12-04] MEDS: CARBIDOPA/LEVODOPA 25 MG/250 MG TABLET PO SCH (21:15)
[2019-12-05] MEDS: ACETAMINOPHEN 325 MG TABLET PO PRN ×3 (01:09→20:59)
[2019-12-05] MEDS: ASPIRIN 81 MG TABLET EC PO SCH (06:27)
[2019-12-05] MEDS: PANTOPRAZOLE 20MG TABLET PO SCH ×2 (06:27→16:21)
[2019-12-05 07:43] VITALS: BP 130/73
[2019-12-05] MEDS: DIVALPROEX 500 MG TAB.ER.24H PO SCH ×2 (08:58→20:59)
[2019-12-05] MEDS: CARBIDOPA/LEVODOPA 25 MG/250 MG TABLET PO SCH ×3 (08:58→20:59)
[2019-12-05 12:36] VITALS: BP 105/67
[2019-12-05] MEDS: TRIHEXYPHENIDYL 2MG TABLET PO SCH ×3 (14:00→20:59)
--- NOTE | 2019-12-05 14:06 | NUR ---
Do not anticipate need for MASSEUR/MASSEUSE intervention at time of discharge. Addendum: 12/05/19 at 1407 by Samanta NUGNET Amended: Links added.
[2019-12-05 19:35] VITALS: BP 113/53
[2019-12-05] MEDS: ATORVASTATIN 40 MG TABLET PO SCH (20:58)
[2019-12-05] MEDS: NICOTINE 14MG/24 HR PATCH.TD24 TD SCH (20:59)
[2019-12-05] MEDS: HALOPERIDOL 5 MG TABLET PO SCH (21:00)
[2019-12-06 05:50] LABS: ANION GAP 6 mmol/L (5-15); CALCIUM 8.6 mg/dL (8.5-10.1); CHLORIDE 105 mmol/L (98-107)
[2019-12-06 05:52] LABS: CREATININE 2.44 mg/dL (0.55-1.02)
[2019-12-06] MEDS: ASPIRIN 81 MG TABLET EC PO SCH (05:57)
[2019-12-06] MEDS: PANTOPRAZOLE 20MG TABLET PO SCH ×2 (06:01→16:09)
[2019-12-06 07:36] VITALS: BP 112/60
[2019-12-06] MEDS: CARBIDOPA/LEVODOPA 25 MG/250 MG TABLET PO SCH ×3 (08:14→20:25)
[2019-12-06] MEDS: TRIHEXYPHENIDYL 2MG TABLET PO SCH ×3 (08:15→20:25)
[2019-12-06] MEDS: DIVALPROEX 500 MG TAB.ER.24H PO SCH ×2 (08:15→20:26)
[2019-12-06] MEDS: HALOPERIDOL 5 MG TABLET PO SCH ×2 (08:15→20:25)
[2019-12-06] MEDS: ACETAMINOPHEN 325 MG TABLET PO PRN ×2 (10:54→17:34)
[2019-12-06 19:15] VITALS: BP 89/53
[2019-12-06] MEDS: ATORVASTATIN 40 MG TABLET PO SCH (20:25)
[2019-12-06] MEDS: NICOTINE 14MG/24 HR PATCH.TD24 TD SCH (20:25)
[2019-12-07] MEDS: ACETAMINOPHEN 325 MG TABLET PO PRN ×4 (02:39→21:55)
[2019-12-07 02:45] VITALS: BP 113/72
[2019-12-07] MEDS: PANTOPRAZOLE 20MG TABLET PO SCH ×2 (06:11→16:42)
[2019-12-07] MEDS: ASPIRIN 81 MG TABLET EC PO SCH (06:11)
[2019-12-07 07:35] VITALS: BP 102/60
[2019-12-07] MEDS: CARBIDOPA/LEVODOPA 25 MG/250 MG TABLET PO SCH ×3 (08:34→21:42)
[2019-12-07] MEDS: HALOPERIDOL 5 MG TABLET PO SCH ×2 (08:35→21:42)
[2019-12-07] MEDS: TRIHEXYPHENIDYL 2MG TABLET PO SCH ×3 (08:35→21:42)
[2019-12-07] MEDS: DIVALPROEX 500 MG TAB.ER.24H PO SCH ×2 (08:35→21:42)
[2019-12-07] MEDS ORDERED: MAGNESIUM CITRATE 300ML ORAL SOL PO ONE (14:00)
[2019-12-07 19:45] VITALS: BP 107/68
[2019-12-07] MEDS: NICOTINE 14MG/24 HR PATCH.TD24 TD SCH (21:42)
[2019-12-07] MEDS: TRAZODONE 50MG TABLET PO SCH (21:42)
[2019-12-07] MEDS: ATORVASTATIN 40 MG TABLET PO SCH (21:43)
[2019-12-08] MEDS: ASPIRIN 81 MG TABLET EC PO SCH (05:32)
[2019-12-08] MEDS: PANTOPRAZOLE 20MG TABLET PO SCH ×2 (05:32→16:14)
[2019-12-08 07:50] VITALS: BP 105/64
[2019-12-08] MEDS: DIVALPROEX 500 MG TAB.ER.24H PO SCH ×2 (09:17→21:36)
[2019-12-08] MEDS: HALOPERIDOL 5 MG TABLET PO SCH ×2 (09:17→21:36)
[2019-12-08] MEDS: CARBIDOPA/LEVODOPA 25 MG/250 MG TABLET PO SCH ×3 (09:17→21:36)
[2019-12-08] MEDS: TRIHEXYPHENIDYL 2MG TABLET PO SCH ×2 (09:17→16:14)
[2019-12-08] MEDS: ACETAMINOPHEN 325 MG TABLET PO PRN ×2 (11:35→21:36)
[2019-12-08 19:54] VITALS: BP 102/71
[2019-12-08] MEDS: TRAZODONE 50MG TABLET PO SCH (21:35)
[2019-12-08] MEDS: ATORVASTATIN 40 MG TABLET PO SCH (21:35)
[2019-12-08] MEDS: NICOTINE 14MG/24 HR PATCH.TD24 TD SCH (21:35)
[2019-12-09] MEDS: ASPIRIN 81 MG TABLET EC PO SCH (05:08)
[2019-12-09] MEDS: PANTOPRAZOLE 20MG TABLET PO SCH (05:08)
[2019-12-09] MEDS ORDERED: TRIHEXYPHENIDYL 2MG TABLET PO SCH (06:00)
[2019-12-09 07:20] VITALS: BP 104/59
[2019-12-09] MEDS ORDERED: HALOPERIDOL 5 MG TABLET PO PRN (09:00)
[2019-12-09] MEDS: CARBIDOPA/LEVODOPA 25 MG/250 MG TABLET PO SCH ×3 (09:35→21:23)
[2019-12-09] MEDS: DIVALPROEX 500 MG TAB.ER.24H PO SCH ×2 (09:37→21:23)
[2019-12-09] MEDS ORDERED: ARIPIPRAZOLE IM ONE (13:30)
[2019-12-09 19:59] VITALS: BP 97/63
[2019-12-09] MEDS: NICOTINE 14MG/24 HR PATCH.TD24 TD SCH (21:23)
[2019-12-09] MEDS: TRIHEXYPHENIDYL 2MG TABLET PO SCH (21:23)
[2019-12-09] MEDS: PANTOPRAZOLE 40MG TABLET PO SCH (21:24)
[2019-12-09] MEDS: TRAZODONE 50MG TABLET PO SCH (21:24)
[2019-12-09] MEDS: HALOPERIDOL 5 MG TABLET PO SCH (21:25)
[2019-12-09] MEDS: ATORVASTATIN 40 MG TABLET PO SCH (21:25)
[2019-12-10] MEDS: ASPIRIN 81 MG TABLET EC PO SCH (05:06)
[2019-12-10 07:20] VITALS: BP 108/71
[2019-12-10] MEDS: TRIHEXYPHENIDYL 2MG TABLET PO SCH ×2 (08:32→20:28)
[2019-12-10] MEDS: CARBIDOPA/LEVODOPA 25 MG/250 MG TABLET PO SCH ×3 (08:32→20:27)
[2019-12-10] MEDS: PANTOPRAZOLE 40MG TABLET PO SCH ×2 (08:32→20:28)
[2019-12-10] MEDS: DIVALPROEX 500 MG TAB.ER.24H PO SCH ×2 (08:32→20:27)
[2019-12-10] MEDS ORDERED: ARIPIPRAZOLE IM SCH (09:00)
[2019-12-10 09:14] VITALS: BP 114/76
[2019-12-10 09:26] VITALS: BP 104/70
[2019-12-10 09:44] VITALS: BP 111/76
[2019-12-10 11:04] VITALS: BP 107/66
[2019-12-10 11:47] LABS: MICROSCOPIC NOT IND
[2019-12-10 19:21] VITALS: BP 107/69
[2019-12-10] MEDS: NICOTINE 14MG/24 HR PATCH.TD24 TD SCH (20:27)
[2019-12-10] MEDS: ATORVASTATIN 40 MG TABLET PO SCH (20:27)
[2019-12-10] MEDS: TRAZODONE 50MG TABLET PO SCH (20:28)
[2019-12-10] MEDS: HALOPERIDOL 5 MG TABLET PO SCH (20:28)
[2019-12-11] MEDS: ACETAMINOPHEN 325 MG TABLET PO PRN (01:09)
[2019-12-11] MEDS: ASPIRIN 81 MG TABLET EC PO SCH (06:00)
[2019-12-11 07:30] VITALS: BP 121/80
[2019-12-11] MEDS: DIVALPROEX 500 MG TAB.ER.24H PO SCH (07:41)
[2019-12-11] MEDS: PANTOPRAZOLE 40MG TABLET PO SCH (07:41)
[2019-12-11] MEDS: CARBIDOPA/LEVODOPA 25 MG/250 MG TABLET PO SCH (07:41)
[2019-12-11] MEDS: TRIHEXYPHENIDYL 2MG TABLET PO SCH (07:42)
== END 2019-12-11 08:50 | disposition home or self-care (01) | DRG 750 ==
LOC: 3E 19:16
PROVIDERS: ADMIT Psychiatry & Neurology Psychosomatic Medicine; ATTEND Psychiatry & Neurology Psychosomatic Medicine
DX: F25.0 Schizoaffective disorder, bipolar type (principal); F17.210 Nicotine dependence, cigarettes, uncomplicated; G20 Parkinson's disease; I12.9 Hypertensive chronic kidney disease with stage 1 through stage 4 chronic kidney disease, or unspecified chronic kidney disease; K21.9 Gastro-esophageal reflux disease without esophagitis; N18.4 Chronic kidney disease, stage 4 (severe); Z90.710 Acquired absence of both cervix and uterus; Z90.49 Acquired absence of other specified parts of digestive tract; Z98.51 Tubal ligation status
CPT/HCPCS: 36415; 80048; 81003; Q0162; 92523-GN; J1944

== ENCOUNTER 2020-01-08 15:04 | Emergency (ER) | payer MEDICAID ==
[~2020-01-08] VITALS: Ht 165.1 cm; Wt 82.7 kg
[2020-01-08 15:55] LABS: BASOPHILS # (AUTO) 0.05 x10^3/uL (0-0.1); BASOPHILS % (AUTO) 1 % (0-1); EOSINOPHILS # (AUTO) 0.11 x10^3/uL (0-0.4); EOSINOPHILS % (AUTO) 2 % (1-7); LYMPHOCYTES # (AUTO) 1.75 x10^3/uL (1-3.4); LYMPHOCYTES % (AUTO) 32 % (22-44); MD NO; MEAN CORPUSCULAR HEMOGLOBIN 29.5 pg (27.0-34.8); MEAN CORPUSCULAR HGB CONC 32.7 g/dL (32.4-35.8); MEAN CORPUSCULAR VOLUME 90.2 fL (80-100); MEAN PLATELET VOLUME 9.8 fL (7.4-10.4); MONOCYTES # (AUTO) 0.43 x10^3/uL (0.2-0.8); MONOCYTES % (AUTO) 8 % (2-9); NEUTROPHILS # (AUTO) 3.18 x10^3/uL (1.8-6.8); NEUTROPHILS % (AUTO) 58 % (42-75); PLATELET COUNT 210 x10^3/uL (130-400); RED BLOOD COUNT 3.46 x10^6/uL (3.82-5.3); RED CELL DISTRIBUTION WIDTH 16.1 % (9.6-15.2)
[2020-01-08 16:04] LABS: INTERNATIONAL NORMALIZED RATIO 0.99 (0.93-1.1); PROTHROMBIN TIME 10.5 Seconds (9.6-11.5)
[2020-01-08 16:08] LABS: ANION GAP 3 mmol/L (5-15); CALCIUM 8.1 mg/dL (8.5-10.1); CHLORIDE 111 mmol/L (98-107)
[2020-01-08 16:12] LABS: ALANINE AMINOTRANSFERASE 8 U/L (12-78); ALKALINE PHOSPHATASE 107 U/L (45-117); BILIRUBIN,TOTAL 0.2 mg/dL (0.2-1.0); CREATININE 2.34 mg/dL (0.55-1.02); TOTAL PROTEIN 6.6 g/dL (6.4-8.2)
--- NOTE | 2020-01-08 16:36 | NUR ---
MERCHANDISING ASSISTANT: PT FROM LOBBY TO ROOM AT THIS TIME.
--- NOTE | 2020-01-08 17:34 | NUR ---
PT STATES SHE IS HERE FOR 2 EPISODES OF BLOOD IN HER STOOL. DECRIBES ONE BRIGHT AND ONE DARK. PT DENIES ANY ABD PAIN, OR PAIN WHEN URINATING. WHEN ASKED IF SHE HAS PAIN WHEN HAVING A BOWEL MOVEMENT SHE STATES "SOMETIMES, I HAVE TO PUT MY FINGER UP THERE AND STRETCH AND PULL." UNABLE TO CLARIFY WHAT PATIENT MEANS BY STRETCH AND PULL. PT DOES STATE SHE HAS HAD DIFFICULTY WITH BOWEL MOVEMENTS SINCE GIVEN TO CHILD
[2020-01-08 18:11] VITALS: BP 106/61
--- NOTE | 2020-01-08 18:24 | NUR ---
Nishant given discharge instructions and they have confirmed that they understand the instructions, no further questions. Patient reminded to follow-up with PCP. Patient ambulatory with steady gait. Medical Transport called for patient at discharge desk.
== END 2020-01-08 18:25 | disposition home or self-care (01) ==
LOC: ED 18:09
DX: K64.8 Other hemorrhoids (principal); I12.9 Hypertensive chronic kidney disease with stage 1 through stage 4 chronic kidney disease, or unspecified chronic kidney disease; N18.9 Chronic kidney disease, unspecified; D63.8 Anemia in other chronic diseases classified elsewhere; I25.2 Old myocardial infarction; E78.5 Hyperlipidemia, unspecified; G20 Parkinson's disease; F17.200 Nicotine dependence, unspecified, uncomplicated; Z90.49 Acquired absence of other specified parts of digestive tract; Z90.710 Acquired absence of both cervix and uterus
CPT/HCPCS: 36415; 80053; 85025; 85610; 85730; 86850; 86900; 99283

== ENCOUNTER 2020-01-18 13:25 | Emergency (ER) | payer MEDICAID ==
[~2020-01-18] VITALS: Ht 165.1 cm; Wt 84.8 kg
--- NOTE | 2020-01-18 13:37 | NUR ---
BIB [facility] FROM HOME. PT C/O BLACK TARRY STOOL FIRST NOTED YESTERDAY, TODAY'S BM WELL. DENIES BRIGHT RED BLOOD, N/V. PT STOOD BEDSIDE TO UNDRESS AND PLACED IN GOWN, PT STEADY ON FEET. PT CONNECTED TO MONITORING. CALL LIGHT IN REACH.
--- NOTE | 2020-01-18 13:42 | NUR ---
THIS RN AT BEDSIDE FOR RECTAL EXAM WITH .
[2020-01-18 14:02] LABS: BASOPHILS # (AUTO) 0.02 x10^3/uL (0-0.1); BASOPHILS % (AUTO) 1 % (0-1); EOSINOPHILS # (AUTO) 0.15 x10^3/uL (0-0.4); EOSINOPHILS % (AUTO) 3 % (1-7); LYMPHOCYTES # (AUTO) 1.28 x10^3/uL (1-3.4); LYMPHOCYTES % (AUTO) 24 % (22-44); MD NO; MEAN CORPUSCULAR HEMOGLOBIN 28.6 pg (27.0-34.8); MEAN CORPUSCULAR HGB CONC 31.5 g/dL (32.4-35.8); MEAN CORPUSCULAR VOLUME 91.1 fL (80-100); MEAN PLATELET VOLUME 9.7 fL (7.4-10.4); MONOCYTES # (AUTO) 0.44 x10^3/uL (0.2-0.8); MONOCYTES % (AUTO) 8 % (2-9); NEUTROPHILS # (AUTO) 3.53 x10^3/uL (1.8-6.8); NEUTROPHILS % (AUTO) 65 % (42-75); PLATELET COUNT 189 x10^3/uL (130-400); RED BLOOD COUNT 3.66 x10^6/uL (3.82-5.3); RED CELL DISTRIBUTION WIDTH 15.9 % (9.6-15.2)
--- NOTE | 2020-01-18 14:07 | NUR ---
PT AMBULATED TO RESTROOM AND BACK WITH STEADY GAIT.
[2020-01-18 14:10] LABS: ANION GAP 3 mmol/L (5-15); CALCIUM 8.3 mg/dL (8.5-10.1); CHLORIDE 109 mmol/L (98-107); CREATININE 1.95 mg/dL (0.55-1.02); PROTHROMBIN TIME 10.3 Seconds (9.6-11.5)
--- NOTE | 2020-01-18 14:12 | NUR ---
ALL RESULTS ARE BACK AT THIS TIME. CHART UP FOR RECHECK.
[2020-01-18 15:00] VITALS: BP 108/66
== END 2020-01-18 17:11 | disposition home or self-care (01) ==
LOC: ED 14:48
DX: D50.0 Iron deficiency anemia secondary to blood loss (chronic) (principal); I10 Essential (primary) hypertension; E78.5 Hyperlipidemia, unspecified; I25.2 Old myocardial infarction; F17.200 Nicotine dependence, unspecified, uncomplicated; G20 Parkinson's disease; Z90.49 Acquired absence of other specified parts of digestive tract
CPT/HCPCS: 36415; 80048; 82040; 85025; 85610; 85730; 86850; 86900; 99283

== ENCOUNTER 2020-01-20 13:14 | Emergency (ER) | payer MEDICAID ==
[~2020-01-20] VITALS: Ht 165.1 cm; Wt 83.0 kg
--- NOTE | 2020-01-20 13:31 | NUR ---
LAST BM: TODAY. STATES SHE TOOK A STOOL SOFTENER LAST NIGHT. BRIGHT RED BLOOD ON TOILET PAPER THIS AM. PT UNSURE IF SHE'S HAD HEMORRHOIDS.
--- NOTE | 2020-01-20 13:55 | NUR ---
PT DRESSED AND WALKING IN HALLWAY. STATES SHE HAD TO GO TO THE BATHROOM. Addendum: 01/20/20 at 1400 by KIESHA ACCOMPANIED PT BACK TO ED ROOM.
[2020-01-20] MEDS ORDERED: DOCU250C16 PO (13:59)
[2020-01-20] MEDS ORDERED: CLON-364 PO (13:59)
[2020-01-20] MEDS ORDERED: DIVA500T17 PO (13:59)
[2020-01-20] MEDS ORDERED: OMEP40CA42 PO (13:59)
[2020-01-20] MEDS ORDERED: ABILIFY (13:59)
[2020-01-20] MEDS ORDERED: CARB1TAB44 PO (13:59)
[2020-01-20 14:10] VITALS: BP 103/43
== END 2020-01-20 14:12 | disposition home or self-care (01) ==
LOC: ED 13:46
DX: K64.8 Other hemorrhoids (principal); K59.00 Constipation, unspecified; R10.84 Generalized abdominal pain; I10 Essential (primary) hypertension; I25.2 Old myocardial infarction; E78.5 Hyperlipidemia, unspecified; F17.200 Nicotine dependence, unspecified, uncomplicated; Z90.49 Acquired absence of other specified parts of digestive tract; Z90.710 Acquired absence of both cervix and uterus; Z98.51 Tubal ligation status
CPT/HCPCS: 99283

== ENCOUNTER 2020-01-29 21:42 | Emergency (ER) | payer MEDICAID ==
[~2020-01-29] VITALS: Ht 162.6 cm; Wt 84.4 kg
[~2020-01-29 21:42] MED LIST changes: +ABILIFY; +CARB1TAB44 PO; +CLON-364 PO; +DIVA500T17 PO; +DOCU250C16 PO; +OMEP40CA42 PO
[2020-01-29 21:53] VITALS: BP 138/81
--- NOTE | 2020-01-29 23:18 | NUR ---
PT HERE WITH COMPLAINTS OF DANCING SUNDAY AND NOW HAVING SORE R HIP. AMBULATORY WITH STEADY GAIT, PLEASANT.
[2020-01-30] MEDS ORDERED: ACETAMINOPHEN 325 MG TABLET PO ONE
== END 2020-01-30 00:03 | disposition home or self-care (01) ==
LOC: ED 23:46
DX: S76.111A Strain of right quadriceps muscle, fascia and tendon, initial encounter (principal); I10 Essential (primary) hypertension; E78.5 Hyperlipidemia, unspecified; G20 Parkinson's disease; Z90.49 Acquired absence of other specified parts of digestive tract; Z90.710 Acquired absence of both cervix and uterus; Z98.51 Tubal ligation status; X58.XXXA Exposure to other specified factors, initial encounter; Y93.89 Activity, other specified; Y92.89 Other specified places as the place of occurrence of the external cause; Y99.8 Other external cause status
CPT/HCPCS: 99282

== ENCOUNTER 2020-01-30 06:47 | Emergency (ER) | payer MEDICAID ==
[~2020-01-30] VITALS: Ht 165.1 cm; Wt 84.0 kg
[2020-01-30 06:49] VITALS: BP 123/88
[2020-01-30] MEDS ORDERED: ACETAMINOPHEN 325 MG TABLET PO ONE (07:30)
== END 2020-01-30 07:43 | disposition home or self-care (01) ==
LOC: ED 07:30
DX: M79.10 Myalgia, unspecified site (principal); I25.2 Old myocardial infarction; I10 Essential (primary) hypertension; E78.5 Hyperlipidemia, unspecified; F17.200 Nicotine dependence, unspecified, uncomplicated; Z90.49 Acquired absence of other specified parts of digestive tract; Z90.710 Acquired absence of both cervix and uterus; Z98.51 Tubal ligation status
CPT/HCPCS: 99283

== ENCOUNTER 2020-02-14 02:53 | Emergency (ER) | payer MEDICAID ==
[~2020-02-14] VITALS: Ht 165.1 cm; Wt 83.9 kg
[2020-02-14 02:55] VITALS: BP 110/51
[2020-02-14] MEDS ORDERED: METHOCARBAMOL 750 MG TABLET PO ONE (03:30)
--- NOTE | 2020-02-14 03:41 | NUR ---
PT RESTING ON JAKE PARKER
[2020-02-14 03:45] LABS: ALBUMIN 2.9 g/dL (3.4-5.0); ANION GAP 7 mmol/L (5-15); CALCIUM 9.1 mg/dL (8.5-10.1); CHLORIDE 109 mmol/L (98-107); CREATININE 1.82 mg/dL (0.55-1.02)
--- NOTE | 2020-02-14 03:46 | NUR ---
PT DISCONNECTED MONITORING AND AMB TO RESTROOM INDEPENDENTLY
== END 2020-02-14 04:42 | disposition home or self-care (01) ==
LOC: ED 03:12
DX: M79.605 Pain in left leg (principal); M79.604 Pain in right leg; M25.551 Pain in right hip; M25.552 Pain in left hip; I10 Essential (primary) hypertension; E78.5 Hyperlipidemia, unspecified; I25.2 Old myocardial infarction; G20 Parkinson's disease; Z90.49 Acquired absence of other specified parts of digestive tract; Z90.710 Acquired absence of both cervix and uterus; Z98.51 Tubal ligation status; F17.210 Nicotine dependence, cigarettes, uncomplicated
CPT/HCPCS: 36415; 80048; 82040; 99283; 99406

== ENCOUNTER 2020-07-29 00:14 | Emergency (ER) | payer MEDICARE, MEDICAID ==
[~2020-07-29] VITALS: Ht 165.1 cm; Wt 79.0 kg
[2020-07-29] MEDS ORDERED: KETOROLAC 30 MG/1 ML ONE (00:38)
[2020-07-29] MEDS ORDERED: KETOROLAC 30 MG/1 ML IM ONE (01:00)
[2020-07-29 01:01] VITALS: BP 114/50
--- NOTE | 2020-07-29 01:02 | NUR ---
Pt states having body aches after being a dancing machine last night. Pt A&O, follows commands. Pt with stable vS. Pt medicated per order for pain. Pt dc'd with written and verbal instructions. Pt out of dept in and home with a taxi voucher.
== END 2020-07-29 01:04 | disposition home or self-care (01) ==
LOC: ED 00:45
DX: M79.10 Myalgia, unspecified site (principal); I10 Essential (primary) hypertension; E78.5 Hyperlipidemia, unspecified; F17.210 Nicotine dependence, cigarettes, uncomplicated; Z98.51 Tubal ligation status; Z90.49 Acquired absence of other specified parts of digestive tract; Z90.710 Acquired absence of both cervix and uterus
CPT/HCPCS: 96372; 99283; 99406; J1885

== ENCOUNTER 2020-08-23 20:21 | Emergency (ER) | payer MEDICARE, MEDICAID ==
[~2020-08-23] VITALS: Ht 165.1 cm; Wt 85.0 kg
--- NOTE | 2020-08-23 20:24 | NUR ---
Patient presents to ER c/o burping, hiccups, low abd pain, and back pain x5 days. Denies N/V/D. Denies urinary symptoms. Hx of GERD. Patient is in NAD. Respirations even and unlabored.
[2020-08-23] MEDS ORDERED: SODIUM CHLORIDE 0.9% 1,000ML IVBOLUS ONE (20:30)
[2020-08-23] MEDS ORDERED: MAALOX/HYOSCYAMINE/LIDOCAINE 45 ML BTL PO ONE (20:30)
[2020-08-23] MEDS ORDERED: SODIUM CHLORIDE FLUSH 10ML SYR IVF ONE (20:30)
[2020-08-23] MEDS ORDERED: ONDANSETRON 2MG/ML, 2ML IVPush ONE (20:30)
[2020-08-23] MEDS ORDERED: FAMOTIDINE 20 MG/2 ML IVPush ONE (20:30)
[2020-08-23] MEDS ORDERED: ONDANSETRON 2MG/ML, 2ML ONE (20:40)
[2020-08-23] MEDS ORDERED: MAALOX/HYOSCYAMINE/LIDOCAINE 45 ML BTL ONE (20:40)
[2020-08-23] MEDS ORDERED: FAMOTIDINE 20 MG/2 ML ONE (20:41)
--- NOTE | 2020-08-23 20:57 | NUR ---
Pt medicated per order. Blood sent to lab, EKG done. Pt on monitor. Will monitor. VSS.
[2020-08-23 20:58] LABS: BASOPHILS % (AUTO) 1 % (0-1); EOSINOPHILS % (AUTO) 2 % (1-7); LYMPHOCYTES % (AUTO) 31 % (22-44); MEAN CORPUSCULAR HEMOGLOBIN 29.9 pg (27.0-34.8); MEAN PLATELET VOLUME 10.1 fL (7.4-10.4); MONOCYTES % (AUTO) 9 % (2-9); NEUTROPHILS % (AUTO) 56 % (42-75); PLATELET COUNT 148 x10^3/uL (130-400); RED BLOOD COUNT 3.79 x10^6/uL (3.82-5.3); RED CELL DISTRIBUTION WIDTH 14.7 % (9.6-15.2)
[2020-08-23 21:02] LABS: MD NO
[2020-08-23 21:07] LABS: ALANINE AMINOTRANSFERASE 7 U/L (12-78); ALBUMIN 3.2 g/dL (3.4-5.0); ANION GAP 6 mmol/L (5-15); CALCIUM 8.5 mg/dL (8.5-10.1); CHLORIDE 107 mmol/L (98-107); CREATININE 2.18 mg/dL (0.55-1.02)
--- NOTE | 2020-08-23 21:11 | NUR ---
pt ambulated to [facility] without problem. Pt back to room, on monitor, UA sent.
[2020-08-23 21:12] LABS: ALKALINE PHOSPHATASE 111 U/L (45-117); BILIRUBIN,TOTAL 0.1 mg/dL (0.2-1.0); TOTAL PROTEIN 6.8 g/dL (6.4-8.2); TROPONIN I < 0.015 ng/mL (0.000-0.045)
[2020-08-23 21:16] LABS: MICROSCOPIC NOT IND
[2020-08-23] MEDS ORDERED: ACETAMINOPHEN 325 MG TABLET PO ONE (22:00)
[2020-08-23] MEDS ORDERED: ACETAMINOPHEN 325 MG TABLET ONE (22:13)
--- NOTE | 2020-08-23 22:34 | NUR ---
US complted. Pt medicated for pain. Pt A&O, denies any needs. Will monitor. No changes.
[2020-08-23 23:21] VITALS: BP 112/46
--- NOTE | 2020-08-23 23:23 | NUR ---
Pt tolerated crackers and water with no problems. Iv dc'd intact. Rx reveiewed with patient. Patient/Caregiver given discharge instructions and they have confirmed that they understand the instructions. Patient ambulatory with steady gait. Taxi voucher given for ride home.
== END 2020-08-23 23:25 | disposition home or self-care (01) ==
LOC: ED 21:36
DX: R10.9 Unspecified abdominal pain (principal); I25.2 Old myocardial infarction; I10 Essential (primary) hypertension; E78.5 Hyperlipidemia, unspecified; Z90.49 Acquired absence of other specified parts of digestive tract; Z90.710 Acquired absence of both cervix and uterus; Z88.5 Allergy status to narcotic agent
CPT/HCPCS: 36415; 74021; 76700; 80053; 81003; 83690; 84484; 85025; 93005; 96361; 96374; 96375; 99285; J2405; J7030

== ENCOUNTER 2020-08-24 20:15 | Emergency (ER) | payer MEDICARE, MEDICAID ==
[~2020-08-24] VITALS: Ht 165.1 cm; Wt 80.0 kg
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
--- NOTE | 2020-08-24 21:35 | NUR ---
pt resting on gurney, nad, provided warm blankets for comfort, no change in condition. denies additional needs at this time. bed in lowest, call light on lap, rails engaged, wctm. waiting for rad
[2020-08-24] MEDS ORDERED: KETOROLAC 30 MG/1 ML ONE (22:01)
--- NOTE | 2020-08-24 22:09 | NUR ---
rn at bs to medicate pt for pain, pt told rn "i cant have that because im " rn informed pt if she had a hysterectomy she cant be , pt then states "i dont want medication, the needle scares me", nad, resting on belemleoma, chart up for recheck. wctm.
[2020-08-24 22:16] VITALS: BP 139/80
--- NOTE | 2020-08-24 22:38 | NUR ---
Patient given discharge instructions and they have confirmed that they understand the instructions. Patient ambulatory with steady gait. nad, denies additional questions or needs at this time. no personal belongings left in room after dc.
== END 2020-08-24 22:40 | disposition home or self-care (01) ==
LOC: ED 21:19
DX: S63.501A Unspecified sprain of right wrist, initial encounter (principal); M25.531 Pain in right wrist; I25.2 Old myocardial infarction; I10 Essential (primary) hypertension; Z90.49 Acquired absence of other specified parts of digestive tract; Z90.710 Acquired absence of both cervix and uterus; W01.0XXA Fall on same level from slipping, tripping and stumbling without subsequent striking against object, initial encounter; Y93.89 Activity, other specified; Y92.89 Other specified places as the place of occurrence of the external cause; Y99.8 Other external cause status
CPT/HCPCS: 99283

== ENCOUNTER 2020-08-28 00:16 | Emergency (ER) | payer MEDICARE, MEDICAID ==
[~2020-08-28] VITALS: Ht 165.1 cm; Wt 82.0 kg
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
[2020-08-28 00:57] LABS: BASOPHILS % (AUTO) 1 % (0-1); EOSINOPHILS % (AUTO) 3 % (1-7); LYMPHOCYTES % (AUTO) 29 % (22-44); MEAN CORPUSCULAR HGB CONC 33.1 g/dL (32.4-35.8); MEAN PLATELET VOLUME 10.4 fL (7.4-10.4); MONOCYTES % (AUTO) 10 % (2-9); NEUTROPHILS % (AUTO) 58 % (42-75); PLATELET COUNT 151 x10^3/uL (130-400); RED BLOOD COUNT 3.51 x10^6/uL (3.82-5.3); RED CELL DISTRIBUTION WIDTH 14.9 % (9.6-15.2)
[2020-08-28 00:58] LABS: MD NO
[2020-08-28 01:08] LABS: ALANINE AMINOTRANSFERASE 7 U/L (12-78); ALBUMIN 3.2 g/dL (3.4-5.0); ANION GAP 7 mmol/L (5-15); CALCIUM 8.8 mg/dL (8.5-10.1); CHLORIDE 109 mmol/L (98-107); CREATININE 2.39 mg/dL (0.55-1.02); SALICYLATE LEVEL 2.3 mg/dL (2.8-20.0)
[2020-08-28 01:12] LABS: ALKALINE PHOSPHATASE 102 U/L (45-117); BILIRUBIN,TOTAL 0.2 mg/dL (0.2-1.0); TOTAL PROTEIN 6.5 g/dL (6.4-8.2)
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
[2020-08-28 01:42] VITALS: BP 126/70
--- NOTE | 2020-08-28 01:42 | NUR ---
NO URINE NEEDED PER DR GRIFFITHS. PT DISCHARGED PER PROVIDER.
== END 2020-08-28 01:44 | disposition home or self-care (01) ==
LOC: ED 00:46
DX: R46.2 Strange and inexplicable behavior (principal)
CPT/HCPCS: 36415; 80053; 80143; 80164; 80179; 80320; 85025; 99283; G0480

== ENCOUNTER 2020-09-02 07:12 | Emergency (ER) | payer MEDICARE, MEDICAID ==
[~2020-09-02] VITALS: Ht 165.1 cm; Wt 76.4 kg
[2020-09-02 07:55] LABS: MICROSCOPIC NOT IND
--- NOTE | 2020-09-02 08:04 | NUR ---
SOUND RANGING CREWMEMBER: PT TO ROOM FROM RADIOLOGYKEO
[2020-09-02 08:43] LABS: BASOPHILS % (AUTO) 1 % (0-1); EOSINOPHILS % (AUTO) 3 % (1-7); LYMPHOCYTES % (AUTO) 38 % (22-44); MEAN CORPUSCULAR HEMOGLOBIN 29.3 pg (27.0-34.8); MEAN CORPUSCULAR HGB CONC 32.1 g/dL (32.4-35.8); MEAN PLATELET VOLUME 10.6 fL (7.4-10.4); MONOCYTES % (AUTO) 10 % (2-9); NEUTROPHILS % (AUTO) 48 % (42-75); PLATELET COUNT 154 x10^3/uL (130-400); RED BLOOD COUNT 3.74 x10^6/uL (3.82-5.3); RED CELL DISTRIBUTION WIDTH 14.9 % (9.6-15.2)
[2020-09-02 08:45] LABS: MD NO
[2020-09-02 08:47] LABS: ALBUMIN 3.2 g/dL (3.4-5.0); ANION GAP 3 mmol/L (5-15); CALCIUM 8.9 mg/dL (8.5-10.1); CHLORIDE 110 mmol/L (98-107)
[2020-09-02 08:50] LABS: ALANINE AMINOTRANSFERASE < 6 U/L (12-78); ALKALINE PHOSPHATASE 105 U/L (45-117); BILIRUBIN,TOTAL 0.2 mg/dL (0.2-1.0); CREATININE 2.22 mg/dL (0.55-1.02); TOTAL PROTEIN 6.5 g/dL (6.4-8.2)
--- NOTE | 2020-09-02 08:52 | NUR ---
PT BIB EMS FOR, RIGHT LOWER ABD AND SUPRAPUBIC PAIN INTERMITTENT X 2 WEEKS, SEEN RECENTLY HERE FOR SAME. DENIES N/V/D, DENIES DYSURIA, DENIES VAG BLEEDING/DISCHARGE.PT IN BED WITH CONTSPO2, BPQ 30 MIN, SIDE RAILS UP X2, CALL LIGHT IN REACH. WENT OVER PLAN OF CARE FROM ORDER LIST. AGREES TO PLAN.
[2020-09-02 09:41] VITALS: BP 124/74
== END 2020-09-02 09:43 | disposition home or self-care (01) ==
LOC: ED 08:14
DX: I12.9 Hypertensive chronic kidney disease with stage 1 through stage 4 chronic kidney disease, or unspecified chronic kidney disease (principal); N18.9 Chronic kidney disease, unspecified; D53.9 Nutritional anemia, unspecified; R10.84 Generalized abdominal pain; K59.00 Constipation, unspecified; R19.7 Diarrhea, unspecified; I25.2 Old myocardial infarction; E78.5 Hyperlipidemia, unspecified; Z88.8 Allergy status to other drugs, medicaments and biological substances; Z98.51 Tubal ligation status; Z90.49 Acquired absence of other specified parts of digestive tract; Z87.891 Personal history of nicotine dependence; Z79.899 Other long term (current) drug therapy; Z90.710 Acquired absence of both cervix and uterus
CPT/HCPCS: 36415; 74021; 80053; 81003; 85025; 99284

== ENCOUNTER 2020-10-22 11:53 | Emergency (ER) | payer MEDICARE, MEDICAID ==
[~2020-10-22] VITALS: Ht 165.1 cm; Wt 76.4 kg
[2020-10-22 12:46] LABS: BASOPHILS % (AUTO) 1 % (0-1); EOSINOPHILS % (AUTO) 3 % (1-7); LYMPHOCYTES % (AUTO) 35 % (22-44); MEAN CORPUSCULAR HEMOGLOBIN 29.5 pg (27.0-34.8); MEAN PLATELET VOLUME 9.9 fL (7.4-10.4); MONOCYTES % (AUTO) 11 % (2-9); NEUTROPHILS % (AUTO) 51 % (42-75); PLATELET COUNT 189 x10^3/uL (130-400); RED BLOOD COUNT 3.89 x10^6/uL (3.82-5.3); RED CELL DISTRIBUTION WIDTH 15.1 % (9.6-15.2)
[2020-10-22 12:52] LABS: ALANINE AMINOTRANSFERASE 11 U/L (12-78); ALBUMIN 3.2 g/dL (3.4-5.0); ANION GAP 4 mmol/L (5-15); CALCIUM 8.9 mg/dL (8.5-10.1); CHLORIDE 109 mmol/L (98-107); CREATININE 1.93 mg/dL (0.55-1.02)
[2020-10-22 12:53] LABS: MD NO
[2020-10-22 12:54] LABS: ALKALINE PHOSPHATASE 116 U/L (45-117); BILIRUBIN,TOTAL 0.2 mg/dL (0.2-1.0); TOTAL PROTEIN 6.9 g/dL (6.4-8.2)
--- NOTE | 2020-10-22 14:25 | NUR ---
PT TO ROOM FROM LOBBY
--- NOTE | 2020-10-22 14:42 | NUR ---
PT PRESENTS TO ED WITH C/O BLACK STOOL THIS AM. PT STATES THEY TOOK PEPTO BISMOL. PT DENIES N/V, STATES THEY HAVE BEEN CONSTIPATED PRIOR TO TODAY. PT A&O, RESPS EVEN AND UNLABOREDM, VSS, ALL MONITORS ATTACHED, NSR, NADN.
--- NOTE | 2020-10-22 15:15 | NUR ---
PT TO CT
--- NOTE | 2020-10-22 17:00 | NUR ---
PRECEPTOR RN NOTE: PT ASSISTED TO BATHROOM, GAIT STEADY. PT REQUESTING PAIN MEDICATION, MD NOTIFIED. NO ORDERS RECEIVED AT THIS TIME.
[2020-10-22 17:57] VITALS: BP 103/47
--- NOTE | 2020-10-22 18:23 | NUR ---
REPORT GIVEN TO KRISTY PARR AT BEDSIDE. EDMD THOMASON NOTIFIED PT'S BP IS 99/44 AT THIS TIME, EDMD CALVIN'All LANCE.
--- NOTE | 2020-10-22 18:42 | NUR ---
pt given dc instructions with pcp follow up. pt a&o, resps even and unlabored, ambulatory to dc desk with steady gait, all questions answered. nadn at dc.
== END 2020-10-22 18:43 | disposition home or self-care (01) ==
LOC: ED 12:13
DX: R10.30 Lower abdominal pain, unspecified (principal); R19.5 Other fecal abnormalities; I10 Essential (primary) hypertension; E78.5 Hyperlipidemia, unspecified; I25.2 Old myocardial infarction; G20 Parkinson's disease; Z90.49 Acquired absence of other specified parts of digestive tract
CPT/HCPCS: 36415; 74021; 74176; 80053; 85025; 99285

== ENCOUNTER 2020-10-25 16:10 | Emergency (ER) | payer MEDICARE, MEDICAID ==
[~2020-10-25] VITALS: Ht 165.1 cm; Wt 77.0 kg
[2020-10-25 16:49] LABS: BASOPHILS % (AUTO) 1 % (0-1); EOSINOPHILS % (AUTO) 2 % (1-7); LYMPHOCYTES % (AUTO) 31 % (22-44); MEAN CORPUSCULAR HGB CONC 33.4 g/dL (32.4-35.8); MONOCYTES % (AUTO) 7 % (2-9); NEUTROPHILS % (AUTO) 59 % (42-75); PLATELET COUNT 181 x10^3/uL (130-400); RED BLOOD COUNT 3.65 x10^6/uL (3.82-5.3); RED CELL DISTRIBUTION WIDTH 14.9 % (9.6-15.2)
[2020-10-25 16:50] LABS: MD NO
[2020-10-25 17:02] LABS: ALANINE AMINOTRANSFERASE 13 U/L (12-78); ALBUMIN 3.2 g/dL (3.4-5.0); ANION GAP 5 mmol/L (5-15); CALCIUM 8.8 mg/dL (8.5-10.1); CHLORIDE 107 mmol/L (98-107); CREATININE 2.21 mg/dL (0.55-1.02)
[2020-10-25 17:07] LABS: ALKALINE PHOSPHATASE 102 U/L (45-117); BILIRUBIN,TOTAL 0.2 mg/dL (0.2-1.0); TOTAL PROTEIN 6.6 g/dL (6.4-8.2)
[2020-10-25 18:17] VITALS: BP 111/72
--- NOTE | 2020-10-25 19:27 | NUR ---
WRECKING MECHANIC: PT. TO ROOM FROM LOBBY AT THIS TIME.
[2020-10-25 20:37] LABS: TROPONIN I < 0.015 ng/mL (0.000-0.045)
--- NOTE | 2020-10-25 21:14 | NUR ---
Discharge instructions given. All questions and concerns addressed. Patient ambulatory with a steady gait. Belongings with patient. Taxi voucher provided.
== END 2020-10-25 21:15 | disposition home or self-care (01) ==
LOC: ED 21:14
DX: R10.13 Epigastric pain (principal); R07.89 Other chest pain; I10 Essential (primary) hypertension; I25.2 Old myocardial infarction; E78.5 Hyperlipidemia, unspecified; G20 Parkinson's disease; Z90.49 Acquired absence of other specified parts of digestive tract; Z87.891 Personal history of nicotine dependence
CPT/HCPCS: 36415; 71045; 80053; 83690; 83880; 84484; 85025; 93005; 99285

== ENCOUNTER 2020-10-26 13:57 | Emergency (ER) | payer MEDICARE, MEDICAID ==
[~2020-10-26] VITALS: Ht 165.1 cm; Wt 77.3 kg
--- NOTE | 2020-10-26 14:00 | NUR ---
ASSIST RN: CARLINE LOWRY FROM HOME FOR INTERMITTENT CHEST PAIN/EPIGASTRIC PAIN. WAS HERE YESTERDAY FOR SAME COMPLAINT, PRESCRIBED OMEPRAZOLE, UNABLE TO SYNCHRO ASSEMBLER RX. PT REPORTS PAIN INCREASES WHEN SHE LIFTS HER ARMS ABOVE HER HEAD. 12-LEAD UNREMARKABLE PER EMS, VSS. ARRIVES TO ED A&OX4. DENIES ANY PAIN AT THIS TIME.
--- NOTE | 2020-10-26 16:03 | NUR ---
PT IS RESTING COMFORTABLY ON AN E.R. GURNEY. THERE ARE NO ACUTE CHANGES SINCE HER ARRIVAL HERE TODAY. I WILL CONTINUE TO MONITOR AND TREAT ORDERED, WELL PRN WHILE AWAITING ORDERS FROM AN ERP.
--- NOTE | 2020-10-26 16:15 | NUR ---
md is at the bedside for consult.
[2020-10-26] MEDS ORDERED: MAALOX/HYOSCYAMINE/LIDOCAINE 45 ML BTL PO ONE (16:30)
[2020-10-26] MEDS ORDERED: MAALOX/HYOSCYAMINE/LIDOCAINE 45 ML BTL ONE (16:54)
[2020-10-26 16:59] VITALS: BP 120/62
[2020-10-26 18:07] LABS: TROPONIN I < 0.015 ng/mL (0.000-0.045)
== END 2020-10-26 18:35 | disposition home or self-care (01) ==
LOC: ED 14:16
DX: K29.00 Acute gastritis without bleeding (principal); R10.13 Epigastric pain; R10.12 Left upper quadrant pain; R07.89 Other chest pain; I10 Essential (primary) hypertension; I25.2 Old myocardial infarction; E78.5 Hyperlipidemia, unspecified; Z90.49 Acquired absence of other specified parts of digestive tract
CPT/HCPCS: 36415; 84484; 93005; 99284

== ENCOUNTER 2020-10-31 20:28 | Emergency (ER) | payer MEDICARE, MEDICAID ==
[~2020-10-31] VITALS: Ht 165.1 cm; Wt 80.0 kg
[2020-10-31 20:37] VITALS: BP 113/74
--- NOTE | 2020-10-31 20:43 | NUR ---
Patient given discharge instructions and they have confirmed that they understand the instructions. Patient ambulatory with steady gait. NAD, all questions answered appropriately, denies additional needs at this time. No personal belongings left in room after discharge.
== END 2020-10-31 20:52 | disposition home or self-care (01) ==
LOC: ED 20:50
DX: R10.13 Epigastric pain (principal); I10 Essential (primary) hypertension; I25.2 Old myocardial infarction; E78.5 Hyperlipidemia, unspecified; G20 Parkinson's disease; Z90.49 Acquired absence of other specified parts of digestive tract; Z87.891 Personal history of nicotine dependence
CPT/HCPCS: 93005; 99283

== ENCOUNTER 2020-11-13 17:32 | Emergency (ER) | payer MEDICARE, MEDICAID ==
[~2020-11-13] VITALS: Ht 165.1 cm; Wt 79.0 kg
[~2020-11-13 17:32] MED LIST changes: -OMEP40CA42 PO; +OMEP40CA8 PO
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
[2020-11-13 17:35] VITALS: BP 102/24
--- NOTE | 2020-11-13 17:40 | NUR ---
at bedside for exam.
--- NOTE | 2020-11-13 17:55 | NUR ---
Pt taken by [email or web address] via gurney to radiology.
--- NOTE | 2020-11-13 18:02 | NUR ---
Pt back to room from radiology.
--- NOTE | 2020-11-13 18:15 | NUR ---
Xray results reviewed and chart marked for recheck by .
--- NOTE | 2020-11-13 18:30 | NUR ---
Pt instructional technology facilitator light directly after MD at bedside stating her xrays are clear and he was going to d/c her to home shortly. Pt states she wants an EKG now because she now has CP. Pt unable to describe pain but states it is 2/10 and with sudden onset and no radiation from sternal area.
--- NOTE | 2020-11-13 18:35 | NUR ---
EKG performed and brought to MD once finally completed. Pt having difficulty holding still and states she has Parkinson's so it's hard to not shake. Pt had not previously been able to state she had this dx.
--- NOTE | 2020-11-13 19:02 | NUR ---
Pt ambulatory to restroom and back with steady gait noted. Awaiting d/c papers. Cab voucher needed per pt.
== END 2020-11-13 19:40 | disposition home or self-care (01) ==
LOC: ED 18:21
DX: R10.32 Left lower quadrant pain (principal); K59.00 Constipation, unspecified; R94.31 Abnormal electrocardiogram [ECG] [EKG]; F17.290 Nicotine dependence, other tobacco product, uncomplicated; E78.5 Hyperlipidemia, unspecified; I25.2 Old myocardial infarction; I10 Essential (primary) hypertension; Z90.49 Acquired absence of other specified parts of digestive tract; Z90.710 Acquired absence of both cervix and uterus
CPT/HCPCS: 74021; 93005; 99283; 99406

== ENCOUNTER 2020-11-14 02:10 | Observation (INO) | payer MEDICARE, MEDICAID ==
[~2020-11-14] VITALS: Ht 165.1 cm; Wt 77.5 kg
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
--- NOTE | 2020-11-14 02:47 | NUR ---
UPON ROUNDS ON PT A BED BUG WAS FOUND ON PTS BACK AND PLACED IN A SPECIMEN CUP AND LEFT ON ROOM COUNTER. CHARGE NURSE NOTIFIED. BLANKETS PLACED IN FRONT OF DOOR ROOM CRACKS TO PREVENT CONTAMINATION. NADN. BREATHING EVEN AND UNLABORED. VSS. WCTM
[2020-11-14 02:55] LABS: MICROSCOPIC NOT IND
[2020-11-14 03:07] LABS: AMPHETAMINE SCREEN, URINE Negative (Negative); BARBITURATE SCREEN, URINE Negative (Negative); BENZODIAZEPINE SCREEN, URINE Negative (Negative); CANNABINOID SCREEN, URINE Negative (Negative); COCAINE SCREEN, URINE Negative (Negative); METHADONE SCREEN, URINE Negative (Negative); OPIATE SCREEN, URINE Negative (Negative)
[2020-11-14 03:13] LABS: BASOPHILS % (AUTO) 1 % (0-1); EOSINOPHILS % (AUTO) 2 % (1-7); LYMPHOCYTES % (AUTO) 37 % (22-44); MEAN CORPUSCULAR HEMOGLOBIN 29.5 pg (27.0-34.8); MEAN CORPUSCULAR HGB CONC 33.3 g/dL (32.4-35.8); MONOCYTES % (AUTO) 11 % (2-9); NEUTROPHILS % (AUTO) 49 % (42-75); PLATELET COUNT 183 x10^3/uL (130-400); RED CELL DISTRIBUTION WIDTH 14.3 % (9.6-15.2)
[2020-11-14 03:23] LABS: ALANINE AMINOTRANSFERASE 8 U/L (12-78); ALBUMIN 2.9 g/dL (3.4-5.0); ANION GAP 6 mmol/L (5-15); CALCIUM 8.5 mg/dL (8.5-10.1); CHLORIDE 113 mmol/L (98-107); CREATININE 2.03 mg/dL (0.55-1.02); SALICYLATE LEVEL 2.6 mg/dL (2.8-20.0)
[2020-11-14 03:34] LABS: ALKALINE PHOSPHATASE 91 U/L (45-117); BILIRUBIN,TOTAL 0.2 mg/dL (0.2-1.0); TOTAL PROTEIN 6.2 g/dL (6.4-8.2)
--- NOTE | 2020-11-14 04:02 | NUR ---
PT TRANSFERED TO DECON ROOM. TOLERATED TRANSFERS WELL. CLEANSED, DRIED, AND NEW GOWN APPLIED. NON-SLIP SOCKS APPLIED. PT TRANSFERRED TO HOSPITAL BED FOR INCREASED CONFORTABILITY. PT TRANSFERRED TO NEW ROOM. PT BELONGING TRIPLED BAGS IN REVERSE ORDER TO PREVENT BED BUG CONTAMINATION AND MOVED TO NEW ROOM. PT ATTACHED TO MONITORS. VSS WITH 54 HR. NADN. BED IN LOW POSITION, RAILS ENGAGED. BED ALARM IMPLEMENTED. CALL LIGHT WITHIN REACH. WCTM. EKG BEING DONE IN ROOM CURRENTLY.
--- NOTE | 2020-11-14 04:39 | NUR ---
PT CONDITION UNCHANGED. NADN. PT OFF UNIT IN IMAGING.
[2020-11-14] MEDS ORDERED: ACETAMINOPHEN 500 MG TABLET ONE (04:52)
[2020-11-14] MEDS ORDERED: ACETAMINOPHEN 500 MG TABLET PO ONE (05:00)
--- NOTE | 2020-11-14 05:06 | NUR ---
PT GIVEN PUDDING, MILK, GRAM CRACKERS NADN. BED IN LOW POSITON. RAILS ENGAGED. CALL LIGHT WITHIN REACH NO ADDITONAL NEEDS OR QUESTIONS AT THIS TIME. WCTM
--- NOTE | 2020-11-14 06:57 | NUR ---
REPORT RECEIVED FROM JASKARAN WAGNER
--- NOTE | 2020-11-14 07:05 | NUR ---
GAVE REPORT TO ARIELLA WAGNER. TRANSFER OF CARE
--- NOTE | 2020-11-14 07:11 | NUR ---
PT SLEEPING IN BED, RESPS EVEN AND UNLABORED, VSS, NADN. CALL LIGHT IN REACH.
--- NOTE | 2020-11-14 10:11 | NUR ---
Ez psych ELECTRON BEAM MACHINE WELDER SETTER at bedside for eval.
[2020-11-14] MEDS ORDERED: GABAPENTIN 300 MG CAPSULE PO SCH (11:00)
[2020-11-14] MEDS ORDERED: HALOPERIDOL 5 MG TABLET PO SCH (11:00)
[2020-11-14] MEDS ORDERED: GABAPENTIN 300 MG CAPSULE ONE (11:06)
[2020-11-14] MEDS ORDERED: HALOPERIDOL 5 MG TABLET ONE (11:06)
[2020-11-14 11:11] VITALS: BP 108/30
--- NOTE | 2020-11-14 11:15 | NUR ---
pt medicated per order, tolerated well. pt resting in bed, a&o, resps even and unlabored, vss, nadn.
--- NOTE | 2020-11-14 13:03 | NUR ---
pt educated on discharge instructions and follow-up, verbalized understanding. pt a&o, resps even and unlabored, vss, nadn. ambulatory to discharge with steady gait.
[2020-11-14] MEDS ORDERED: DIVALPROEX 500 MG TAB.ER.24H PO SCH (21:00)
[2020-11-14] MEDS ORDERED: MIRTAZAPINE 15 MG TABLET PO SCH (21:00)
== END 2020-11-14 13:12 | disposition home or self-care (01) ==
LOC: ED 07:08 → EDIP 07:53 → INTOOBSV 07:53 → UNDODISOB 13:11
PROVIDERS: ADMIT Emergency Medicine; ATTEND Emergency Medicine
DX: F25.9 Schizoaffective disorder, unspecified (principal); F31.9 Bipolar disorder, unspecified; G20 Parkinson's disease; F41.1 Generalized anxiety disorder; I10 Essential (primary) hypertension; I25.2 Old myocardial infarction; F17.210 Nicotine dependence, cigarettes, uncomplicated; Z79.899 Other long term (current) drug therapy; Z90.710 Acquired absence of both cervix and uterus
CPT/HCPCS: 36415; 70450; 80053; 80164; 80299; 80307; 80329; 81003; 84443; 85025; 93005; 99285; G0378; 80320; G0480

== ENCOUNTER 2020-11-25 18:09 | Emergency (ER) | payer MEDICARE, MEDICAID ==
[~2020-11-25] VITALS: Ht 165.1 cm; Wt 76.5 kg
[2020-11-25] MEDS ORDERED: POLYETHYLENE GLYCOL 17 GM PACKET ONE (22:14)
[2020-11-25 22:21] VITALS: BP 112/58
--- NOTE | 2020-11-25 22:21 | NUR ---
Patient given discharge instructions and they have confirmed that they understand the instructions. Patient ambulatory with steady gait.
[2020-11-25] MEDS ORDERED: POLYETHYLENE GLYCOL 17 GM PACKET NG ONE (22:30)
== END 2020-11-25 22:23 | disposition home or self-care (01) ==
LOC: ED 22:00
DX: K59.00 Constipation, unspecified (principal); R11.0 Nausea; I10 Essential (primary) hypertension; I25.2 Old myocardial infarction
CPT/HCPCS: 99284

== ENCOUNTER 2020-12-25 15:06 | Emergency (ER) | payer MEDICAID, MEDICARE | END 2020-12-25 15:10 | disposition left against medical advice (07) | LOC: ED 15:07 | DX: R10.9 Unspecified abdominal pain (principal); R11.0 Nausea; Z53.21 Procedure and treatment not carried out due to patient leaving prior to being seen by health care provider ==

== ENCOUNTER 2020-12-25 15:07 | Emergency (ER) | payer MEDICAID, MEDICARE ==
[~2020-12-25] VITALS: Ht 165.1 cm; Wt 72.7 kg
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
[2020-12-25 16:07] LABS: MICROSCOPIC NOT IND
[2020-12-25 16:20] LABS: BASOPHILS % (AUTO) 1 % (0-1); EOSINOPHILS % (AUTO) 1 % (1-7); LYMPHOCYTES % (AUTO) 29 % (22-44); MEAN CORPUSCULAR HEMOGLOBIN 28.8 pg (27.0-34.8); MEAN CORPUSCULAR HGB CONC 32.9 g/dL (32.4-35.8); MONOCYTES % (AUTO) 12 % (2-9); NEUTROPHILS % (AUTO) 57 % (42-75); PLATELET COUNT 191 x10^3/uL (130-400); RED BLOOD COUNT 4.07 x10^6/uL (3.82-5.3); RED CELL DISTRIBUTION WIDTH 13.7 % (9.6-15.2)
[2020-12-25 16:23] LABS: ALANINE AMINOTRANSFERASE 11 U/L (12-78); ALBUMIN 3.2 g/dL (3.4-5.0); ANION GAP 4 mmol/L (5-15); CALCIUM 8.3 mg/dL (8.5-10.1); CHLORIDE 111 mmol/L (98-107); CREATININE 2.19 mg/dL (0.55-1.02)
[2020-12-25 16:25] LABS: ALKALINE PHOSPHATASE 97 U/L (45-117); BILIRUBIN,TOTAL 0.2 mg/dL (0.2-1.0); TOTAL PROTEIN 6.8 g/dL (6.4-8.2)
[2020-12-25 17:24] VITALS: BP 101/32
--- NOTE | 2020-12-25 17:50 | NUR ---
PT REC'VD DISCHARGE INSTRUCTIONS AND EDUCATION. PT HAD NO FURTHER QUESTIONS. PT AMBULATED TO D/C AREA, STEADY GAIT.
== END 2020-12-25 18:05 | disposition home or self-care (01) ==
LOC: ED 17:59
DX: R10.9 Unspecified abdominal pain (principal); R11.0 Nausea; I10 Essential (primary) hypertension; E78.5 Hyperlipidemia, unspecified; I25.2 Old myocardial infarction; F17.200 Nicotine dependence, unspecified, uncomplicated; Z90.49 Acquired absence of other specified parts of digestive tract; Z90.710 Acquired absence of both cervix and uterus
CPT/HCPCS: 36415; 74022; 80053; 81003; 83690; 85025; 99284

== ENCOUNTER 2021-01-20 10:31 | Emergency (ER) | payer MEDICARE ==
[~2021-01-20] VITALS: Ht 165.1 cm; Wt 68.2 kg
--- NOTE | 2021-01-20 10:37 | NUR ---
PT BIB EMS FOR GENERAL BODY ACHES. PT HAS BEEN TAKING TYLENOL AT HOME TWICE A DAY FOR THE PAIN. PT TOOK 1000 MG OF TYLENOL THIS AM. NO OTHER COMPLAINTS AT THIS TIME. PT HOOKED UP TO VS MONITORS.
[2021-01-20] MEDS ORDERED: KETOROLAC 30 MG/1 ML ONE (10:49)
[2021-01-20] MEDS ORDERED: KETOROLAC 30 MG/1 ML IM ONE (11:30)
[2021-01-20 11:46] LABS: MICROSCOPIC NOT IND
[2021-01-20 12:30] VITALS: BP 95/45
--- NOTE | 2021-01-20 12:41 | NUR ---
PT REC'VD DISCHARGE INSTRUCTIONS AND EDUCATION. PT HAD NO FURTHER QUESTIONS. PT AMBULATED TO DC AREA.
== END 2021-01-20 12:44 | disposition home or self-care (01) ==
LOC: ED 10:32
DX: M79.10 Myalgia, unspecified site (principal); Z20.822 Contact with and (suspected) exposure to COVID-19; I10 Essential (primary) hypertension
CPT/HCPCS: 81003; 96372; 99283; J1885; U0003; U0005

== ENCOUNTER 2021-02-22 18:44 | Emergency (ER) | payer MEDICARE, MEDICAID ==
[~2021-02-22] VITALS: Ht 167.6 cm; Wt 86.4 kg
[~2021-02-22 18:44] MED LIST changes: -DOCU250C16 PO; +[UNRECOGNIZED DRUG - CODE] PO
--- NOTE | 2021-02-22 18:52 | NUR ---
BIBA FOR CP X1 DAYS, REPORTS IT IS A BURNING SENSATION, SIMILAR TO PREVIOUS EPISODES OF GERD THAT SHE HAS HAD. NO INTERVENTIONS ENROUTE DUE TO REPORTED ASPIRIN ALLERGY THAT CAUSES NAUSEA, ON ARRIVAL TO ER PT REPORTS SHE IS OKAY TO TAKE THE ASPIRIN. REPORTS CHEST PAIN IS GONE AND NO LONGER BURNING, DENIES PREVIOUS MIs TO THIS RN. PT PLACED ON SPO2/BP/ECG MONITORING. BED IN LOWEST, RAILS ENGAGED,CALL LIGHT ON LAP, NAD. HALEY LEON AT BS FOR EVAL AND POC. PT DENIES ADDITIONAL QUESTIONS OR NEEDS AT THIS TIME. PROVIDED WARM BLANKETS FOR COMFORT. WCTM.
[2021-02-22] MEDS ORDERED: MAALOX/HYOSCYAMINE/LIDOCAINE 45 ML BTL PO ONE (19:00)
[2021-02-22] MEDS ORDERED: ASPIRIN 81 MG TABLET CHEW PO ONE (19:00)
[2021-02-22] MEDS ORDERED: ASPIRIN 81 MG TABLET CHEW ONE (19:05)
[2021-02-22] MEDS ORDERED: MAALOX/HYOSCYAMINE/LIDOCAINE 45 ML BTL ONE (19:06)
[2021-02-22 19:20] LABS: BASOPHILS % (AUTO) 1 % (0-1); EOSINOPHILS % (AUTO) 3 % (1-7); LYMPHOCYTES % (AUTO) 33 % (22-44); MEAN CORPUSCULAR HEMOGLOBIN 28.4 pg (27.0-34.8); MEAN CORPUSCULAR HGB CONC 33.4 g/dL (32.4-35.8); MEAN PLATELET VOLUME 9.8 fL (7.4-10.4); MONOCYTES % (AUTO) 10 % (2-9); NEUTROPHILS % (AUTO) 53 % (42-75); PLATELET COUNT 176 x10^3/uL (130-400); RED BLOOD COUNT 3.92 x10^6/uL (3.82-5.3); RED CELL DISTRIBUTION WIDTH 14.5 % (9.6-15.2)
[2021-02-22 19:33] LABS: ALANINE AMINOTRANSFERASE 16 U/L (12-78); ALBUMIN 2.8 g/dL (3.4-5.0); ANION GAP 6 mmol/L (5-15); CALCIUM 7.9 mg/dL (8.5-10.1); CHLORIDE 109 mmol/L (98-107); CREATININE 1.82 mg/dL (0.55-1.02)
[2021-02-22 19:36] LABS: ALKALINE PHOSPHATASE 100 U/L (45-117); BILIRUBIN,TOTAL 0.2 mg/dL (0.2-1.0); TOTAL PROTEIN 6.6 g/dL (6.4-8.2); TROPONIN I < 0.015 ng/mL (0.000-0.045)
--- NOTE | 2021-02-22 20:08 | NUR ---
Patient is resting comfortably in bed. Bed in lowest, rails engaged, call light on lap. Vital Signs within normal limits. NAD, reports that her chest pain is back at this time and that she needs something for "my head and my chest and my back, because I hurt". ERP aware, WCTM.
[2021-02-22] MEDS ORDERED: KETOROLAC 30 MG/1 ML IVPush ONE (20:30)
[2021-02-22] MEDS ORDERED: KETOROLAC 30 MG/1 ML ONE (20:40)
--- NOTE | 2021-02-22 21:11 | NUR ---
pt medicated per mar for pain, ambulatory to restroom with a smooth and steady gait, nad, appears comfortable back in bed, vss. Bed in lowest, rails engaged, call light on lap. WCTM.
[2021-02-22 21:44] VITALS: BP 121/74
--- NOTE | 2021-02-22 22:00 | NUR ---
Patient/Caregiver given discharge instructions and they have confirmed that they understand the instructions. Patient ambulatory with steady gait. NAD, all questions answered appropriately, denies additional needs at this time. No personal belongings left in room after discharge. given taxi voucher for safe dc home.
== END 2021-02-22 22:11 | disposition home or self-care (01) ==
LOC: ED 21:02
DX: R07.89 Other chest pain (principal); F20.1 Disorganized schizophrenia; I12.9 Hypertensive chronic kidney disease with stage 1 through stage 4 chronic kidney disease, or unspecified chronic kidney disease; N18.30 Chronic kidney disease, stage 3 unspecified; R94.31 Abnormal electrocardiogram [ECG] [EKG]; F17.200 Nicotine dependence, unspecified, uncomplicated; E78.5 Hyperlipidemia, unspecified; Z90.49 Acquired absence of other specified parts of digestive tract; Z90.710 Acquired absence of both cervix and uterus
CPT/HCPCS: 36415; 71045; 80053; 84484; 85025; 93005; 96374; 99285; J1885

== ENCOUNTER 2021-03-02 22:30 | Emergency (ER) | payer MEDICARE, MEDICAID ==
[2021-03-02 22:37] VITALS: BP 116/63
== END 2021-03-02 23:44 | disposition home or self-care (01) ==
LOC: ED 23:35
DX: R10.31 Right lower quadrant pain (principal); R10.32 Left lower quadrant pain; M54.9 Dorsalgia, unspecified; I10 Essential (primary) hypertension; F17.200 Nicotine dependence, unspecified, uncomplicated; G20 Parkinson's disease; Z90.49 Acquired absence of other specified parts of digestive tract